=== PATIENT | female | born 1990 | race African-American/Black ===

== ENCOUNTER 2020-04-02 21:26 | Outpatient (CLI) | payer OTHER ==
[2020-04-02 21:46] VITALS: BP 122/70
[2020-04-02] MEDS ORDERED: LACTATED RINGERS 1,000 ML IV SCH (22:00)
--- NOTE | 2020-04-03 02:17 | Ultrasound Report ---
US OB limited INDICATION: RULE OUT ROM. TECHNIQUE: Transabdominal. COMPARISON: None available. FINDINGS: There is a single intrauterine . Heart Rate: 135 beats per minute. Position: cephalic. Amniotic Fluid Volume: normal Amniotic Fluid Index (NAI) in cm (if calculated): 8.8. IMPRESSION: 1. Amniotic fluid is normal. Signer Name: Fausto Munoz MD Signed: 04/03/2020 2:12 AM Workstation Name: [id number]
== END 2020-04-03 00:52 | disposition home or self-care (01) ==
LOC: TRG 21:26 → APU 21:34 → TRG 04-03 00:52
PROVIDERS: ATTEND Obstetrics & Gynecology
DX: O42.92 Full-term premature rupture of membranes, unspecified as to length of time between rupture and onset of labor (principal); Z3A.39 39 weeks gestation of pregnancy
CPT/HCPCS: 76815

== ENCOUNTER 2020-04-09 12:21 | Outpatient (CLI) | payer OTHER ==
[2020-04-09 12:57] VITALS: BP 114/75
--- NOTE | 2020-04-09 15:49 | Ultrasound Report ---
ULTRASOUND OBSTETRIC LIMITED ULTRASOUND BIOPHYSICAL PROFILE INDICATION / CLINICAL INFORMATION: nr nst in office. Clinical Gestational Age (GA): 40.3 weeks.days COMPARISON: Obstetric ultrasound dated 04/02/2020. FINDINGS: BREATHING MOVEMENT = 2 GROSS BODY MOVEMENT = 2 TONE = 2 QUALITATIVE AMNIOTIC FLUID VOLUME = 2 TOTAL BIOPHYSICAL SCORE = 8/8 HEART RATE (beats per minute): 141 AMNIOTIC FLUID INDEX (cm) = 12.3 (normal = 7-24 cm) PRESENTATION: Cephalic. ADDITIONAL FINDINGS: None. IMPRESSION: 1. Biophysical Score = 8/8 2. Single living intrauterine gestation in cephalic position. Signer Name: Doug Patrick MD Signed: 04/09/2020 3:45 PM Workstation Name: [id number]
== END 2020-04-09 15:35 | disposition home or self-care (01) ==
LOC: TRG 12:21 → APU 12:22 → TRG 15:35
PROVIDERS: ATTEND Obstetrics & Gynecology
DX: Z34.03 Encounter for supervision of normal first pregnancy, third trimester (principal); Z3A.40 40 weeks gestation of pregnancy
CPT/HCPCS: 59025; 76815; 76819

== ENCOUNTER 2020-04-12 02:18 | Inpatient (IN) | payer OTHER ==
[2020-04-12] MEDS ORDERED: ONDANSETRON 4 MG/2 ML INJ IV PRN (04:24)
[2020-04-12] MEDS ORDERED: TERBUTALINE 1 MG/1 ML INJ SUB-Q PRN (04:24)
[2020-04-12] MEDS ORDERED: MINERAL OIL 30 ML ORAL LIQD PO PRN (04:24)
[2020-04-12] MEDS ORDERED: ePHEDrine SULFATE 50 MG/1 ML INJ IV PRN ×2 (04:24→13:54)
[2020-04-12] MEDS ORDERED: AMPICILLIN/NS 2 GM/100 ML 2 GM/100 ML BAG IV ONE (04:24)
[2020-04-12] MEDS ORDERED: LIDOCAINE (2%) 20 MG/1 ML VIAL 20 ML MDV INFILTRATI ONE (04:24)
[2020-04-12] MEDS ORDERED: OXYTOCIN DRIP 30 UNITS/500 ML BAG IV SCH ×2 (05:00)
[2020-04-12 05:21] LABS: Hemoglobin 12.6 gm/dl (10.1-14.3); Mean Corpuscular HGB Conc 32 % (30-34); Mean Corpuscular Volume 86 fl (79-97); Platelet Count 300 K/mm3 (140-440); Red Blood Count 4.51 M/mm3 (3.65-5.03); Red Cell Distribution Width 15.2 % (13.2-15.2)
[2020-04-12] MEDS: LACTATED RINGERS 1,000 ML IV SCH ×2 (05:23→10:36)
[2020-04-12] MEDS: BUTORPHANOL 2 MG/1 ML INJ IV PRN ×3 (07:01→12:24)
[2020-04-12] MEDS: AMPICILLIN/NS 1 GM/50 ML 1 GM/50 ML BAG IV SCH ×3 (09:27→17:22)
[2020-04-12 09:52] LABS: Bacteria,Urine 1+ /HPF (Negative); Bilirubin,Urine NEG (Negative); Blood,Urine MOD (Negative); Color,Urine Amber (Yellow); Mucus,Urine 2+ /HPF
--- NOTE | 2020-04-12 10:53 | History and Physical Report ---
History of Present Illness Date of examination: 04/12/20 Date of admission: 04/12/20 04:24 Chief complaint: " I'm having contractions" History of present illness: 29 y/o [place] female presented to [facility] ob triage @ 40.6 wks with c/o uc times several days. She admitted to active FM and denied LOF or VB. Pt initiated her pnc at 8 5/7 wks at [facility] obstetrics gynecology md [place] location and had an uneventful preg. Med/surg/social/family hx is unremarkable. Pt was found to be in labor and was admitted to L&D for delivery. Labs: B pos AB screen neg Rubella -I RPR- NR HIV-neg HgsAg- Neg Hg Elec- AA UC- neg 1hr GTT-104 Hg -10.8 Pap- wnl GBS- pos Past History Past Medical History: no pertinent history Past Surgical History: no surgical history Family/Genetic History: none Social history: no significant social history, - Obstetrical History Expected Date of Delivery: 04/06/20 Actual Gestation: 40 Week(s) 6 Day(s) : 1 Para: 0 Medications and Allergies Allergies Allergy/AdvReac Type Severity Reaction Status Date / Time No Known Allergies Allergy Verified 04/02/20 22:04 Home Medications Medication Instructions Recorded Confirmed Last Taken Type [facility] Vitamins Tablet 140 mg PO DAILY 04/02/20 04/12/20 04/11/20 History Active Meds: Active Medications Butorphanol Tartrate (Butorphanol 2 Mg/1 Ml Inj) 2 mg IV Q2H PRN PRN Reason: Pain , Severe (7-10) Last Admin: 04/12/20 09:27 Dose: 2 mg Documented by: Ephedrine Sulfate (Ephedrine Sulfate 50 Mg/1 Ml Inj) 10 mg IV Q2M PRN PRN Reason: Hypotension Oxytocin/Sodium Chloride (Pitocin/Ns 30 Unit/500ml) 30 units in 500 mls @ 1 mls/hr IV TITR KESHIA; Protocol Last Titration: 04/12/20 09:34 Dose: 4 mls/hr Documented by: Lactated Ringer's (Lactated Ringers) 1,000 mls @ 125 mls/hr IV DIRECT KESHIA Last Admin: 04/12/20 10:36 Dose: 999 mls/hr Documented by: Oxytocin/Sodium Chloride (Pitocin/Ns 30 Unit/500ml) 30 units in 500 mls @ 40 mls/hr IV TITR KESHIA; Protocol Ampicillin Sodium (Ampicillin/Ns 1 Gm/50 Ml) 1 gm in 50 mls @ 100 mls/hr IV Q4H KESHIA; Protocol Last Admin: 04/12/20 09:27 Dose: 100 mls/hr Documented by: Mineral Oil (Mineral Oil 30 Ml Oral Liqd) 30 ml PO QHS PRN PRN Reason: Constipation Ondansetron HCl (Ondansetron 4 Mg/2 Ml Inj) 4 mg IV Q8H PRN PRN Reason: Nausea And Vomiting Terbutaline Sulfate (Terbutaline 1 Mg/1 Ml Inj) 0.25 mg SUB-Q ONCE PRN PRN Reason: Hyperstimulation/Hypertonicity Review of Systems All systems: negative Eyes: deferred Ears, nose, mouth and throat: deferred Breasts: normal Genitourinary: normal appearance - Vital Signs Vital signs: Vital Signs Temp Pulse Resp BP Pulse Ox 97.7 F 105 H 19 122/73 98 04/12/20 02:56 04/12/20 02:56 04/12/20 02:56 04/12/20 02:56 04/12/20 02:56 Temp Pulse Resp BP Pulse Ox 98.6 F 101 H 14 120/66 99 04/12/20 09:32 04/12/20 10:32 04/12/20 09:32 04/12/20 10:18 04/12/20 10:32 - Physical Exam Breasts: Positive: normal Abdomen: Positive: normal appearance, soft, normal bowel sounds, other (gravid) Genitourinary (Female): Positive: normal external genitalia, normal perenium Vulva: both: normal Vagina: Positive: normal moisture Uterus: Positive: enlarged, normal contour, other (gravid) Adnexa: both: normal Anus/Rectum: Positive: normal perianal skin Extremities: Positive: normal - Obstetrical FHR: auscultation normal, category 1 Uterine Contraction Monitor Mode: External Cervical Dilatation: 1 (per nurse) Cervical Effacement Percentage: 70 (per nurse) station: -3 Uterine Contraction Pattern: Irregular Uterine Tone Measurement Phase: Resting Uterine Contraction Intensity: Mild Results Result Diagrams: 04/12/20 04:24 Abnormal lab results 04/12/20 04/12/20 Range/Units 04:24 09:17 WBC 15.3 H (4.5-11.0) K/mm3 Ur Specific [place] 1.034 H (1.003-1.030) Urine WBC (Auto) 12.0 H (0.0-6.0) /HPF All other labs normal. Assessment and Plan A: IUP@ 40.6 wks GBS pos P: Continue monitoring with low dose Pitocin GBS prophylaxis Pain med/Epidural prn Anticipate progress - Patient Problems (1) Term Current Visit: Yes Status: Acute (2) Positive GBS test Current Visit: Yes Status: Acute
--- NOTE | 2020-04-12 11:15 | Event Note ---
Date: 04/12/20 Nurse reports pt's hr of 115-130s since admission. Upon asses of pt her HR was 118 with an O2 sat of 100%. Pt's wbc is 15.3. Pt denied sob. She denied burning, pain, or urgency upon urination. Pt stated she was in pain. Pain med, UA c&s, and a 500 cc fluid bolus was ordered. Will reassess latter. Dr Nunez consulted and agreed with plan.
--- NOTE | 2020-04-12 11:17 | Event Note ---
Date: 04/12/20 After pain med and IVF bolus was given, pt went to sleep and her HR was 103.
[2020-04-12] MEDS ORDERED: NALOXONE 2 MG/2 ML INJ IV PRN (13:54)
--- NOTE | 2020-04-12 13:54 | Anesthesia Consultation ---
Anesthesia Consult and Med Hx Date of service: 04/12/20 - Airway Anesthetic Teeth Evaluation: Good ROM Head & Neck: Adequate Mental/Hyoid Distance: Adequate Mallampati Class: Class II Intubation Access Assessment: Probably Good - Pulmonary Exam CTA: Yes - Cardiac Exam Cardiac Exam: RRR - Pre-Operative Health Status ASA Pre-Surgery Classification: ASA2 Proposed Anesthetic Plan: Epidural - Pulmonary Hx Asthma: No COPD: No Hx Pneumonia: No - Cardiovascular System Hx Hypertension: No - Central Nervous System Hx Seizures: No Hx Psychiatric Problems: No - Endocrine Hx Renal Disease: No Hx End Stage Renal Disease: No Hx Hypothyroidism: No Hx Hyperthyroidism: No - Hematic Hx Anemia: No Hx Sickle Cell Disease: No - Other Systems Hx Alcohol Use: No
[2020-04-12] MEDS ORDERED: fentaNYL-BUPIV 2 MCG/ML-0.125% 200 MCG/100 ML BAG EPIDURAL SCH (14:00)
--- NOTE | 2020-04-12 15:35 | Progress Note ---
Labor Epidural - Labor Epidural Start Time: 15:19 Stop Time: 15:33 Performed by:: NAYELI BUCKLEY Procedure: Patient is requesting epidural for labor pain. H&P, and labs reviewed. Procedure explained, questions answered, consent obtained. Patient in sitting position with blood pressure cuff and pulse ox on and working. Timeout performed immediately before start of procedure. Sterile betadine prep/drape. 3 mL 1% lidocaine skin wheal at L[3]-L[4]. 18-gauge Bergey's epidural needle advanced to [id number] with saline at [7] cm. Epidural dexmedetomidine [30] mcg administered. Epidural catheter advanced to [12] cm, negative aspiration for blood and csf, negative test dose 3 ml 1.5% lidocaine with epinephrine. Sterile steri-strips and tegaderm applied, followed by tape reinforcement. Patient tolerated procedure well. Gene PURCELL
[2020-04-12] MEDS ORDERED: GENTAMICIN/NS 80 MG/100 ML 100 ML IV ONE ×2 (20:50→20:56)
--- NOTE | 2020-04-12 21:01 | Progress Note ---
Assessment and Plan A: IUP@ term Maternal tachycardia GBS pos UTI P: Continue monitoring Continue Ampicillin q 4hr and start Gent 80mg q 8hr Anticipate Dr Nunez was consulted and agrees with plan - Patient Problems (1) Term Current Visit: Yes Status: Acute (2) Positive GBS test Current Visit: Yes Status: Acute Subjective - Subjective Date of service: 04/12/20 Principal diagnosis: TERM PREG Interval history: 29 y/o Bengali female presented to [facility] ob triage @ 40.6 wks with c/o uc times several days. She admitted to active FM and denied LOF or VB. Pt initiated her pnc at 8 5/7 wks at [facility] [place] location and had an uneventful preg. Med/surg/social/family hx is unremarkable. Pt was found to be in labor and was admitted to L&D for delivery. Labs: B pos AB screen neg Rubella -I RPR- NR HIV-neg HgsAg- Neg Hg Elec- AA UC- neg 1hr GTT-104 Hg -10.8 Pap- wnl GBS- pos Patient reports: movement normal Objective - Vital Signs Vital Signs: Vital Signs - 12hr 04/12/20 04/12/20 04/12/20 08:59 09:04 09:09 Temperature Pulse Rate 112 H 112 H 112 H Respiratory Rate Blood Pressure Blood Pressure [Right] O2 Sat by Pulse 100 99 100 Oximetry 04/12/20 04/12/20 04/12/20 09:14 09:19 09:31 Temperature Pulse Rate 107 H 109 H 116 H Respiratory Rate Blood Pressure 122/74 110/64 Blood Pressure [Right] O2 Sat by Pulse 99 100 Oximetry 04/12/20 04/12/20 04/12/20 09:32 09:37 09:42 Temperature 98.6 F Pulse Rate 116 H 106 H 103 H Respiratory 14 Rate Blood Pressure Blood Pressure 110/64 [Right] O2 Sat by Pulse 100 100 100 Oximetry 04/12/20 04/12/20 04/12/20 09:47 09:48 09:52 Temperature Pulse Rate 106 H 99 H 108 H Respiratory Rate Blood Pressure 110/61 Blood Pressure [Right] O2 Sat by Pulse 100 100 Oximetry 04/12/20 04/12/20 04/12/20 09:57 10:02 10:07 Temperature Pulse Rate 107 H 101 H 102 H Respiratory Rate Blood Pressure Blood Pressure [Right] O2 Sat by Pulse 100 99 99 Oximetry 04/12/20 04/12/20 04/12/20 10:12 10:17 10:18 Temperature Pulse Rate 102 H 102 H 99 H Respiratory Rate Blood Pressure 120/66 Blood Pressure [Right] O2 Sat by Pulse 99 99 Oximetry 04/12/20 04/12/20 04/12/20 10:22 10:27 10:32 Temperature Pulse Rate 106 H 100 H 101 H Respiratory Rate Blood Pressure Blood Pressure [Right] O2 Sat by Pulse 99 99 99 Oximetry 04/12/20 04/12/20 04/12/20 10:37 10:42 10:47 Temperature Pulse Rate 104 H 104 H 102 H Respiratory Rate Blood Pressure Blood Pressure [Right] O2 Sat by Pulse 100 100 100 Oximetry 04/12/20 04/12/20 04/12/20 10:49 10:52 10:57 Temperature Pulse Rate 101 H 99 H 104 H Respiratory Rate Blood Pressure 122/71 Blood Pressure [Right] O2 Sat by Pulse 100 100 Oximetry 04/12/20 04/12/20 04/12/20 11:02 11:07 11:12 Temperature Pulse Rate 101 H 102 H 104 H Respiratory Rate Blood Pressure Blood Pressure [Right] O2 Sat by Pulse 100 100 100 Oximetry 04/12/20 04/12/20 04/12/20 11:17 11:20 11:22 Temperature Pulse Rate 104 H 113 H 106 H Respiratory Rate Blood Pressure 129/63 Blood Pressure [Right] O2 Sat by Pulse 100 100 Oximetry 04/12/20 04/12/20 04/12/20 11:27 11:31 11:37 Temperature Pulse Rate 103 H 104 H 104 H Respiratory Rate Blood Pressure Blood Pressure [Right] O2 Sat by Pulse 99 100 100 Oximetry 04/12/20 04/12/20 04/12/20 11:42 11:47 11:52 Temperature Pulse Rate 101 H 102 H 110 H Respiratory Rate Blood Pressure 122/72 Blood Pressure [Right] O2 Sat by Pulse 100 100 100 Oximetry 04/12/20 04/12/20 04/12/20 11:56 12:02 12:07 Temperature Pulse Rate 108 H 100 H 113 H Respiratory Rate Blood Pressure Blood Pressure [Right] O2 Sat by Pulse 100 100 100 Oximetry 04/12/20 04/12/20 04/12/20 12:11 12:20 12:26 Temperature 98.4 F Pulse Rate 106 H 110 H 112 H Respiratory 14 Rate Blood Pressure 123/71 118/63 Blood Pressure 123/71 [Right] O2 Sat by Pulse 100 98 99 Oximetry 04/12/20 04/12/20 04/12/20 12:30 12:35 12:40 Temperature Pulse Rate 107 H 103 H 106 H Respiratory Rate Blood Pressure Blood Pressure [Right] O2 Sat by Pulse 99 99 99 Oximetry 04/12/20 04/12/20 04/12/20 12:45 12:48 12:50 Temperature Pulse Rate 102 H 103 H 106 H Respiratory Rate Blood Pressure 121/64 Blood Pressure [Right] O2 Sat by Pulse 99 99 Oximetry 04/12/20 04/12/20 04/12/20 12:55 13:00 13:05 Temperature Pulse Rate 108 H 107 H 110 H Respiratory Rate Blood Pressure Blood Pressure [Right] O2 Sat by Pulse 99 99 99 Oximetry 04/12/20 04/12/20 04/12/20 13:10 13:13 13:15 Temperature Pulse Rate 111 H 117 H 114 H Respiratory Rate Blood Pressure Blood Pressure [Right] O2 Sat by Pulse 95 94 94 Oximetry 04/12/20 04/12/20 04/12/20 13:18 13:20 13:25 Temperature Pulse Rate 112 H 113 H 116 H Respiratory Rate Blood Pressure 119/67 Blood Pressure [Right] O2 Sat by Pulse 94 95 94 Oximetry 04/12/20 04/12/20 04/12/20 13:30 13:35 13:40 Temperature Pulse Rate 110 H 107 H 109 H Respiratory Rate Blood Pressure Blood Pressure [Right] O2 Sat by Pulse 100 100 100 Oximetry 04/12/20 04/12/20 04/12/20 13:45 13:48 13:50 Temperature Pulse Rate 117 H 101 H 106 H Respiratory Rate Blood Pressure 130/74 Blood Pressure [Right] O2 Sat by Pulse 100 100 Oximetry 04/12/20 04/12/20 04/12/20 13:52 13:55 13:56 Temperature Pulse Rate 111 H 100 H Respiratory Rate Blood Pressure 136/82 136/80 Blood Pressure [Right] O2 Sat by Pulse 100 Oximetry 04/12/20 04/12/20 04/12/20 13:58 14:01 14:04 Temperature Pulse Rate 109 H 109 H 108 H Respiratory Rate Blood Pressure 131/74 136/88 131/80 Blood Pressure [Right] O2 Sat by Pulse 100 Oximetry 04/12/20 04/12/20 04/12/20 14:06 14:07 14:10 Temperature Pulse Rate 111 H 111 H 111 H Respiratory Rate Blood Pressure 130/76 133/79 Blood Pressure [Right] O2 Sat by Pulse 100 Oximetry 04/12/20 04/12/20 04/12/20 14:11 14:13 14:16 Temperature Pulse Rate 109 H 114 H 117 H Respiratory Rate Blood Pressure 142/80 133/76 Blood Pressure [Right] O2 Sat by Pulse 99 99 Oximetry 04/12/20 04/12/20 04/12/20 14:19 14:21 14:22 Temperature Pulse Rate 120 H 112 H 112 H Respiratory Rate Blood Pressure 133/80 135/82 Blood Pressure [Right] O2 Sat by Pulse 96 Oximetry 04/12/20 04/12/20 04/12/20 14:25 14:26 14:28 Temperature Pulse Rate 114 H 110 H 118 H Respiratory Rate Blood Pressure 141/81 136/75 Blood Pressure [Right] O2 Sat by Pulse 96 Oximetry 04/12/20 04/12/20 04/12/20 14:31 14:34 14:36 Temperature Pulse Rate 113 H 112 H 127 H Respiratory Rate Blood Pressure 135/78 137/76 Blood Pressure [Right] O2 Sat by Pulse 97 96 Oximetry 04/12/20 04/12/20 04/12/20 14:37 14:40 14:41 Temperature Pulse Rate 120 H 122 H 119 H Respiratory Rate Blood Pressure 131/78 136/76 Blood Pressure [Right] O2 Sat by Pulse 96 Oximetry 04/12/20 04/12/20 04/12/20 14:43 14:46 14:49 Temperature Pulse Rate 118 H 118 H 122 H Respiratory Rate Blood Pressure 137/74 143/74 136/70 Blood Pressure [Right] O2 Sat by Pulse 97 Oximetry 04/12/20 04/12/20 04/12/20 14:51 14:52 14:55 Temperature Pulse Rate 114 H 114 H 116 H Respiratory Rate Blood Pressure 127/73 137/73 Blood Pressure [Right] O2 Sat by Pulse 97 Oximetry 04/12/20 04/12/20 04/12/20 14:56 14:58 15:01 Temperature Pulse Rate 122 H 116 H 119 H Respiratory Rate Blood Pressure 132/72 134/70 Blood Pressure [Right] O2 Sat by Pulse 96 95 Oximetry 04/12/20 04/12/20 04/12/20 15:06 15:11 15:12 Temperature 97.3 F L Pulse Rate 118 H 127 H 121 H Respiratory 18 Rate Blood Pressure Blood Pressure 137/69 [Right] O2 Sat by Pulse 95 98 96 Oximetry 04/12/20 04/12/20 04/12/20 15:13 15:17 15:25 Temperature Pulse Rate 117 H 99 H 121 H Respiratory Rate Blood Pressure 137/69 141/64 Blood Pressure [Right] O2 Sat by Pulse 96 Oximetry 04/12/20 04/12/20 04/12/20 15:26 15:27 15:29 Temperature Pulse Rate 119 H 120 H 117 H Respiratory Rate Blood Pressure 127/60 129/62 Blood Pressure [Right] O2 Sat by Pulse 98 Oximetry 04/12/20 04/12/20 04/12/20 15:31 15:33 15:35 Temperature Pulse Rate 125 H 121 H 114 H Respiratory Rate Blood Pressure 126/69 150/65 127/58 Blood Pressure [Right] O2 Sat by Pulse 98 Oximetry 04/12/20 04/12/20 04/12/20 15:36 15:37 15:39 Temperature Pulse Rate 125 H 117 H 114 H Respiratory Rate Blood Pressure 105/65 112/59 Blood Pressure [Right] O2 Sat by Pulse 97 Oximetry 04/12/20 04/12/20 04/12/20 15:41 15:43 15:45 Temperature Pulse Rate 128 H 115 H 110 H Respiratory Rate Blood Pressure 115/57 96/55 97/50 Blood Pressure [Right] O2 Sat by Pulse 97 Oximetry 04/12/20 04/12/20 04/12/20 15:46 15:47 15:49 Temperature Pulse Rate 114 H 114 H 100 H Respiratory Rate Blood Pressure 85/47 93/54 Blood Pressure [Right] O2 Sat by Pulse 100 Oximetry 04/12/20 04/12/20 04/12/20 15:51 15:56 15:58 Temperature Pulse Rate 94 H 99 H 95 H Respiratory Rate Blood Pressure 99/57 95/54 Blood Pressure [Right] O2 Sat by Pulse 100 100 Oximetry 04/12/20 04/12/20 04/12/20 16:01 16:03 16:04 Temperature Pulse Rate 96 H 111 H 112 H Respiratory Rate Blood Pressure 99/53 96/54 Blood Pressure [Right] O2 Sat by Pulse 100 Oximetry 04/12/20 04/12/20 04/12/20 16:06 16:07 16:11 Temperature Pulse Rate 105 H 93 H 104 H Respiratory Rate Blood Pressure 104/59 Blood Pressure [Right] O2 Sat by Pulse 100 100 Oximetry 04/12/20 04/12/20 04/12/20 16:16 16:21 16:25 Temperature Pulse Rate 109 H 110 H 115 H Respiratory Rate Blood Pressure 113/62 Blood Pressure [Right] O2 Sat by Pulse 98 97 Oximetry 04/12/20 04/12/20 04/12/20 16:26 16:31 16:36 Temperature Pulse Rate 111 H 101 H 115 H Respiratory Rate Blood Pressure Blood Pressure [Right] O2 Sat by Pulse 97 100 100 Oximetry 04/12/20 04/12/20 04/12/20 16:40 16:41 16:46 Temperature Pulse Rate 104 H 102 H 100 H Respiratory Rate Blood Pressure 98/50 Blood Pressure [Right] O2 Sat by Pulse 99 98 Oximetry 04/12/20 04/12/20 04/12/20 16:51 16:56 17:00 Temperature 97.7 F Pulse Rate 109 H 111 H Respiratory 16 Rate Blood Pressure 103/51 Blood Pressure [Right] O2 Sat by Pulse 99 100 Oximetry 04/12/20 04/12/20 04/12/20 17:01 17:06 17:11 Temperature Pulse Rate 109 H 107 H 103 H Respiratory Rate Blood Pressure 105/56 Blood Pressure [Right] O2 Sat by Pulse 99 99 99 Oximetry 04/12/20 04/12/20 04/12/20 17:16 17:21 17:25 Temperature Pulse Rate 122 H 112 H 99 H Respiratory Rate Blood Pressure 111/57 Blood Pressure [Right] O2 Sat by Pulse 98 97 Oximetry 04/12/20 04/12/20 04/12/20 17:26 17:31 17:36 Temperature Pulse Rate 105 H 105 H 122 H Respiratory Rate Blood Pressure Blood Pressure [Right] O2 Sat by Pulse 100 100 98 Oximetry 04/12/20 04/12/20 04/12/20 17:41 17:46 17:51 Temperature Pulse Rate 113 H 119 H 93 H Respiratory Rate Blood Pressure 118/70 Blood Pressure [Right] O2 Sat by Pulse 100 100 100 Oximetry 04/12/20 04/12/20 04/12/20 17:56 18:01 18:06 Temperature Pulse Rate 103 H 107 H 103 H Respiratory Rate Blood Pressure 107/58 Blood Pressure [Right] O2 Sat by Pulse 100 100 100 Oximetry 04/12/20 04/12/20 04/12/20 18:11 18:16 18:21 Temperature Pulse Rate 107 H 112 H 102 H Respiratory Rate Blood Pressure 119/66 Blood Pressure [Right] O2 Sat by Pulse 100 100 100 Oximetry 04/12/20 04/12/20 04/12/20 18:26 18:27 18:29 Temperature Pulse Rate 113 H 106 H 95 H Respiratory Rate Blood Pressure 109/58 113/56 Blood Pressure [Right] O2 Sat by Pulse 99 Oximetry 04/12/20 04/12/20 04/12/20 18:30 18:31 18:36 Temperature 98.5 F Pulse Rate 98 H 101 H 112 H Respiratory 14 Rate Blood Pressure Blood Pressure 113/56 [Right] O2 Sat by Pulse 100 100 98 Oximetry 04/12/20 04/12/20 04/12/20 18:41 18:42 18:46 Temperature Pulse Rate 103 H 101 H 105 H Respiratory Rate Blood Pressure 107/58 Blood Pressure [Right] O2 Sat by Pulse 100 97 Oximetry 04/12/20 04/12/20 04/12/20 18:51 18:56 19:01 Temperature Pulse Rate 110 H 110 H 117 H Respiratory Rate Blood Pressure 116/61 Blood Pressure [Right] O2 Sat by Pulse 97 98 96 Oximetry 04/12/20 04/12/20 04/12/20 19:05 19:06 19:11 Temperature Pulse Rate 117 H 128 H 119 H Respiratory Rate Blood Pressure 117/66 Blood Pressure [Right] O2 Sat by Pulse 94 96 98 Oximetry 04/12/20 04/12/20 04/12/20 19:16 19:20 19:21 Temperature 98.8 F Pulse Rate 119 H 117 H 120 H Respiratory 20 Rate Blood Pressure 124/66 Blood Pressure 124/66 [Right] O2 Sat by Pulse 97 97 97 Oximetry 04/12/20 04/12/20 04/12/20 19:26 19:31 19:36 Temperature Pulse Rate 124 H 122 H 121 H Respiratory Rate Blood Pressure 127/66 Blood Pressure [Right] O2 Sat by Pulse 96 97 98 Oximetry 04/12/20 04/12/20 04/12/20 19:41 19:46 19:51 Temperature Pulse Rate 114 H 125 H 125 H Respiratory Rate Blood Pressure 109/70 Blood Pressure [Right] O2 Sat by Pulse 97 96 97 Oximetry 04/12/20 04/12/20 04/12/20 19:56 20:01 20:06 Temperature Pulse Rate 126 H 122 H 137 H Respiratory Rate Blood Pressure 125/58 Blood Pressure [Right] O2 Sat by Pulse 97 98 98 Oximetry 04/12/20 04/12/20 04/12/20 20:11 20:12 20:16 Temperature Pulse Rate 142 H 142 H 145 H Respiratory Rate Blood Pressure 130/72 Blood Pressure [Right] O2 Sat by Pulse 96 96 Oximetry 04/12/20 04/12/20 04/12/20 20:21 20:26 20:31 Temperature Pulse Rate 142 H 152 H 138 H Respiratory Rate Blood Pressure 127/71 Blood Pressure [Right] O2 Sat by Pulse 97 97 98 Oximetry 04/12/20 04/12/20 04/12/20 20:36 20:41 20:43 Temperature Pulse Rate 137 H 133 H 141 H Respiratory Rate Blood Pressure 121/94 149/62 Blood Pressure [Right] O2 Sat by Pulse 99 99 Oximetry 04/12/20 04/12/20 20:46 20:51 Temperature Pulse Rate 137 H 138 H Respiratory Rate Blood Pressure Blood Pressure [Right] O2 Sat by Pulse 99 98 Oximetry - Exam Breasts: deferred Abdomen: Present: normal appearance, soft, other (GRAVID) Vulva: both: normal Uterus: Present: normal FHR: category 1 Uterine Contraction Monitor Mode: External Cervical Dilatation: 10 Cervical Effacement Percentage: 100 station: -1 Uterine Contraction Frequency (min): Q2-3 Uterine Contraction Pattern: Regular Uterine Tone Measurement Phase: Resting Uterine Contraction Intensity: Strong/Firm Extremities: normal - Labs Labs: Abnormal Labs 04/12/20 04/12/20 04:24 09:17 WBC 15.3 H Ur Specific [place] 1.034 H Urine WBC (Auto) 12.0 H Laboratory Results - last 24 hr 04/12/20 04/12/20 04/12/20 04:24 04:24 04:40 WBC 15.3 H RBC 4.51 Hgb 12.6 Hct 39.0 MCV 86 MCH 28 MCHC 32 RDW 15.2 Plt Count 300 Urine Color Urine Turbidity Urine pH Ur Specific [place] Urine Protein Urine Glucose (UA) Urine Ketones Urine Blood Urine Nitrite Urine Bilirubin Urine Urobilinogen Ur Leukocyte Esterase Urine WBC (Auto) Urine RBC (Auto) U Epithel Cells (Auto) Urine Bacteria (Auto) Urine Mucus Syphilis IgG Antibody Nonreactive Coronavirus (PCR) Blood Type B POSITIVE Antibody Screen Negative 04/12/20 04/12/20 09:17 09:18 WBC RBC Hgb Hct MCV MCH MCHC RDW Plt Count Urine Color Julia Urine Turbidity Cloudy Urine pH 5.0 Ur Specific [place] 1.034 H Urine Protein 100 mg/dl Urine Glucose (UA) Neg Urine Ketones Tr Urine Blood Mod Urine Nitrite Neg Urine Bilirubin Neg Urine Urobilinogen 2.0 Ur Leukocyte Esterase Tr Urine WBC (Auto) 12.0 H Urine RBC (Auto) 1.0 U Epithel Cells (Auto) 8.0 Urine Bacteria (Auto) 1+ Urine Mucus 2+ Syphilis IgG Antibody Coronavirus (PCR) Negative Blood Type Antibody Screen
[2020-04-13] MEDS: ACETAMINOPHEN 325 MG TAB PO PRN (02:00)
--- NOTE | 2020-04-13 02:19 | Event Note ---
Date: 04/13/20 SVE 10/100%/0 which is unchanged from last exam. FHT 146 with mod isreal + accels occ variables. UC q2-3 with MVUs of 192. Maternal Temp. 99.5, HR 84, B/p 139/91. Pt has been fully dilated since 8:30 pm and has been intermittently pushing x 3.5 hrs. At this point the pt is too exhausted to continue and is requesting a c/s. Dr Nunez was notified of pt's status, and was asked to come for a bedside assessment of pt's condition.
[2020-04-13] MEDS ORDERED: METOCLOPRAMIDE 10 MG/2 ML INJ ONE (02:37)
[2020-04-13] MEDS ORDERED: BICITRA ORAL LIQD 30ML PO ONE (02:37)
[2020-04-13] MEDS ORDERED: BICITRA ORAL LIQD 30ML ONE (02:37)
[2020-04-13] MEDS ORDERED: FAMOTIDINE 20 MG/2 ML INJ IV ONE ×2 (02:37→02:42)
[2020-04-13] MEDS ORDERED: ceFAZolin/Water 2 GM/20 ML 2 GM/20 ML SYRINGE IV ONE (02:38)
[2020-04-13] MEDS ORDERED: METOCLOPRAMIDE 10 MG/2 ML INJ IV ONE (02:42)
--- NOTE | 2020-04-13 02:44 | Progress Note ---
Subjective - Subjective Date of service: 04/13/20 Principal diagnosis: TERM PREG Interval history: arrest of second stage, chorioamnionitis NPO, to OR for cesaran section Amirah Nunez MD Patient reports: movement normal Objective - Vital Signs Vital Signs: Vital Signs - 12hr 04/12/20 04/12/20 04/12/20 14:46 14:49 14:51 Temperature Pulse Rate 118 H 122 H 114 H Respiratory Rate Blood Pressure 143/74 136/70 Blood Pressure [Right] O2 Sat by Pulse 97 97 Oximetry 04/12/20 04/12/20 04/12/20 14:52 14:55 14:56 Temperature Pulse Rate 114 H 116 H 122 H Respiratory Rate Blood Pressure 127/73 137/73 Blood Pressure [Right] O2 Sat by Pulse 96 Oximetry 04/12/20 04/12/20 04/12/20 14:58 15:01 15:06 Temperature Pulse Rate 116 H 119 H 118 H Respiratory Rate Blood Pressure 132/72 134/70 Blood Pressure [Right] O2 Sat by Pulse 95 95 Oximetry 04/12/20 04/12/20 04/12/20 15:11 15:12 15:13 Temperature 97.3 F L Pulse Rate 127 H 121 H 117 H Respiratory 18 Rate Blood Pressure 137/69 Blood Pressure 137/69 [Right] O2 Sat by Pulse 98 96 Oximetry 04/12/20 04/12/20 04/12/20 15:17 15:25 15:26 Temperature Pulse Rate 99 H 121 H 119 H Respiratory Rate Blood Pressure 141/64 Blood Pressure [Right] O2 Sat by Pulse 96 98 Oximetry 04/12/20 04/12/20 04/12/20 15:27 15:29 15:31 Temperature Pulse Rate 120 H 117 H 125 H Respiratory Rate Blood Pressure 127/60 129/62 126/69 Blood Pressure [Right] O2 Sat by Pulse 98 Oximetry 04/12/20 04/12/20 04/12/20 15:33 15:35 15:36 Temperature Pulse Rate 121 H 114 H 125 H Respiratory Rate Blood Pressure 150/65 127/58 Blood Pressure [Right] O2 Sat by Pulse 97 Oximetry 04/12/20 04/12/20 04/12/20 15:37 15:39 15:41 Temperature Pulse Rate 117 H 114 H 128 H Respiratory Rate Blood Pressure 105/65 112/59 115/57 Blood Pressure [Right] O2 Sat by Pulse 97 Oximetry 04/12/20 04/12/20 04/12/20 15:43 15:45 15:46 Temperature Pulse Rate 115 H 110 H 114 H Respiratory Rate Blood Pressure 96/55 97/50 Blood Pressure [Right] O2 Sat by Pulse 100 Oximetry 04/12/20 04/12/20 04/12/20 15:47 15:49 15:51 Temperature Pulse Rate 114 H 100 H 94 H Respiratory Rate Blood Pressure 85/47 93/54 99/57 Blood Pressure [Right] O2 Sat by Pulse 100 Oximetry 04/12/20 04/12/20 04/12/20 15:56 15:58 16:01 Temperature Pulse Rate 99 H 95 H 96 H Respiratory Rate Blood Pressure 95/54 Blood Pressure [Right] O2 Sat by Pulse 100 100 Oximetry 04/12/20 04/12/20 04/12/20 16:03 16:04 16:06 Temperature Pulse Rate 111 H 112 H 105 H Respiratory Rate Blood Pressure 99/53 96/54 Blood Pressure [Right] O2 Sat by Pulse 100 Oximetry 04/12/20 04/12/20 04/12/20 16:07 16:11 16:16 Temperature Pulse Rate 93 H 104 H 109 H Respiratory Rate Blood Pressure 104/59 Blood Pressure [Right] O2 Sat by Pulse 100 98 Oximetry 04/12/20 04/12/20 04/12/20 16:21 16:25 16:26 Temperature Pulse Rate 110 H 115 H 111 H Respiratory Rate Blood Pressure 113/62 Blood Pressure [Right] O2 Sat by Pulse 97 97 Oximetry 04/12/20 04/12/20 04/12/20 16:31 16:36 16:40 Temperature Pulse Rate 101 H 115 H 104 H Respiratory Rate Blood Pressure 98/50 Blood Pressure [Right] O2 Sat by Pulse 100 100 Oximetry 04/12/20 04/12/20 04/12/20 16:41 16:46 16:51 Temperature Pulse Rate 102 H 100 H 109 H Respiratory Rate Blood Pressure Blood Pressure [Right] O2 Sat by Pulse 99 98 99 Oximetry 04/12/20 04/12/20 04/12/20 16:56 17:00 17:01 Temperature 97.7 F Pulse Rate 111 H 109 H Respiratory 16 Rate Blood Pressure 103/51 Blood Pressure [Right] O2 Sat by Pulse 100 99 Oximetry 04/12/20 04/12/20 04/12/20 17:06 17:11 17:16 Temperature Pulse Rate 107 H 103 H 122 H Respiratory Rate Blood Pressure 105/56 Blood Pressure [Right] O2 Sat by Pulse 99 99 98 Oximetry 04/12/20 04/12/20 04/12/20 17:21 17:25 17:26 Temperature Pulse Rate 112 H 99 H 105 H Respiratory Rate Blood Pressure 111/57 Blood Pressure [Right] O2 Sat by Pulse 97 100 Oximetry 04/12/20 04/12/20 04/12/20 17:31 17:36 17:41 Temperature Pulse Rate 105 H 122 H 113 H Respiratory Rate Blood Pressure 118/70 Blood Pressure [Right] O2 Sat by Pulse 100 98 100 Oximetry 04/12/20 04/12/20 04/12/20 17:46 17:51 17:56 Temperature Pulse Rate 119 H 93 H 103 H Respiratory Rate Blood Pressure 107/58 Blood Pressure [Right] O2 Sat by Pulse 100 100 100 Oximetry 04/12/20 04/12/20 04/12/20 18:01 18:06 18:11 Temperature Pulse Rate 107 H 103 H 107 H Respiratory Rate Blood Pressure 119/66 Blood Pressure [Right] O2 Sat by Pulse 100 100 100 Oximetry 04/12/20 04/12/20 04/12/20 18:16 18:21 18:26 Temperature Pulse Rate 112 H 102 H 113 H Respiratory Rate Blood Pressure Blood Pressure [Right] O2 Sat by Pulse 100 100 99 Oximetry 04/12/20 04/12/20 04/12/20 18:27 18:29 18:30 Temperature 98.5 F Pulse Rate 106 H 95 H 98 H Respiratory 14 Rate Blood Pressure 109/58 113/56 Blood Pressure 113/56 [Right] O2 Sat by Pulse 100 Oximetry 04/12/20 04/12/20 04/12/20 18:31 18:36 18:41 Temperature Pulse Rate 101 H 112 H 103 H Respiratory Rate Blood Pressure Blood Pressure [Right] O2 Sat by Pulse 100 98 100 Oximetry 04/12/20 04/12/20 04/12/20 18:42 18:46 18:51 Temperature Pulse Rate 101 H 105 H 110 H Respiratory Rate Blood Pressure 107/58 Blood Pressure [Right] O2 Sat by Pulse 97 97 Oximetry 04/12/20 04/12/20 04/12/20 18:56 19:01 19:05 Temperature Pulse Rate 110 H 117 H 117 H Respiratory Rate Blood Pressure 116/61 Blood Pressure [Right] O2 Sat by Pulse 98 96 94 Oximetry 04/12/20 04/12/20 04/12/20 19:06 19:11 19:16 Temperature Pulse Rate 128 H 119 H 119 H Respiratory Rate Blood Pressure 117/66 Blood Pressure [Right] O2 Sat by Pulse 96 98 97 Oximetry 04/12/20 04/12/20 04/12/20 19:20 19:21 19:26 Temperature 98.8 F Pulse Rate 117 H 120 H 124 H Respiratory 20 Rate Blood Pressure 124/66 127/66 Blood Pressure 124/66 [Right] O2 Sat by Pulse 97 97 96 Oximetry 04/12/20 04/12/20 04/12/20 19:31 19:36 19:41 Temperature Pulse Rate 122 H 121 H 114 H Respiratory Rate Blood Pressure 109/70 Blood Pressure [Right] O2 Sat by Pulse 97 98 97 Oximetry 04/12/20 04/12/20 04/12/20 19:46 19:51 19:56 Temperature Pulse Rate 125 H 125 H 126 H Respiratory Rate Blood Pressure 125/58 Blood Pressure [Right] O2 Sat by Pulse 96 97 97 Oximetry 04/12/20 04/12/20 04/12/20 20:01 20:06 20:11 Temperature Pulse Rate 122 H 137 H 142 H Respiratory Rate Blood Pressure Blood Pressure [Right] O2 Sat by Pulse 98 98 96 Oximetry 04/12/20 04/12/20 04/12/20 20:12 20:16 20:21 Temperature Pulse Rate 142 H 145 H 142 H Respiratory Rate Blood Pressure 130/72 Blood Pressure [Right] O2 Sat by Pulse 96 97 Oximetry 04/12/20 04/12/20 04/12/20 20:26 20:31 20:36 Temperature Pulse Rate 152 H 138 H 137 H Respiratory Rate Blood Pressure 127/71 Blood Pressure [Right] O2 Sat by Pulse 97 98 99 Oximetry 04/12/20 04/12/20 04/12/20 20:41 20:43 20:46 Temperature Pulse Rate 133 H 141 H 137 H Respiratory Rate Blood Pressure 121/94 149/62 Blood Pressure [Right] O2 Sat by Pulse 99 99 Oximetry 04/12/20 04/12/20 04/12/20 20:51 20:56 20:57 Temperature Pulse Rate 138 H 130 H 129 H Respiratory Rate Blood Pressure 125/65 Blood Pressure [Right] O2 Sat by Pulse 98 96 Oximetry 04/12/20 04/12/20 04/12/20 21:01 21:06 21:11 Temperature Pulse Rate 121 H 125 H 122 H Respiratory Rate Blood Pressure Blood Pressure [Right] O2 Sat by Pulse 97 98 97 Oximetry 04/12/20 04/12/20 04/12/20 21:12 21:16 21:21 Temperature Pulse Rate 123 H 128 H 127 H Respiratory Rate Blood Pressure 126/67 Blood Pressure [Right] O2 Sat by Pulse 97 100 Oximetry 04/12/20 04/12/20 04/12/20 21:26 21:31 21:36 Temperature Pulse Rate 134 H 125 H 131 H Respiratory Rate Blood Pressure Blood Pressure [Right] O2 Sat by Pulse 100 98 97 Oximetry 04/12/20 04/12/20 04/12/20 21:41 21:46 21:55 Temperature Pulse Rate 125 H 128 H 128 H Respiratory Rate Blood Pressure 115/63 126/67 Blood Pressure [Right] O2 Sat by Pulse 95 99 Oximetry 04/12/20 04/12/20 04/12/20 22:08 22:10 22:13 Temperature Pulse Rate 134 H 131 H 125 H Respiratory Rate Blood Pressure 122/76 Blood Pressure [Right] O2 Sat by Pulse 98 100 Oximetry 04/12/20 04/12/20 04/12/20 22:25 22:40 22:41 Temperature Pulse Rate 137 H 126 H 51 L Respiratory Rate Blood Pressure 113/68 127/76 Blood Pressure [Right] O2 Sat by Pulse 54 L Oximetry 04/12/20 04/12/20 04/12/20 22:55 22:59 23:04 Temperature Pulse Rate 130 H 117 H 99 H Respiratory Rate Blood Pressure 124/64 Blood Pressure [Right] O2 Sat by Pulse 98 100 Oximetry 04/12/20 04/12/20 04/12/20 23:09 23:12 23:14 Temperature Pulse Rate 102 H 148 H 100 H Respiratory Rate Blood Pressure 126/51 Blood Pressure [Right] O2 Sat by Pulse 100 97 Oximetry 04/12/20 04/12/20 04/13/20 23:25 23:56 00:01 Temperature Pulse Rate 125 H 89 104 H Respiratory Rate Blood Pressure 139/91 Blood Pressure [Right] O2 Sat by Pulse 100 97 Oximetry 04/13/20 04/13/20 04/13/20 00:04 00:24 00:49 Temperature Pulse Rate 66 117 H 115 H Respiratory Rate Blood Pressure Blood Pressure [Right] O2 Sat by Pulse 85 100 97 Oximetry 04/13/20 04/13/20 04/13/20 00:54 00:59 01:04 Temperature Pulse Rate 96 H 109 H 103 H Respiratory Rate Blood Pressure Blood Pressure [Right] O2 Sat by Pulse 97 100 97 Oximetry 04/13/20 04/13/20 04/13/20 01:09 01:14 01:19 Temperature Pulse Rate 127 H 98 H 98 H Respiratory Rate Blood Pressure Blood Pressure [Right] O2 Sat by Pulse 97 98 97 Oximetry 04/13/20 04/13/20 04/13/20 01:24 01:25 01:30 Temperature Pulse Rate 98 H 105 H 129 H Respiratory Rate Blood Pressure Blood Pressure [Right] O2 Sat by Pulse 95 94 96 Oximetry 04/13/20 04/13/20 04/13/20 01:35 02:03 02:08 Temperature Pulse Rate 83 82 118 H Respiratory Rate Blood Pressure Blood Pressure [Right] O2 Sat by Pulse 97 100 96 Oximetry 04/13/20 04/13/20 04/13/20 02:13 02:18 02:23 Temperature Pulse Rate 108 H 98 H 98 H Respiratory Rate Blood Pressure Blood Pressure [Right] O2 Sat by Pulse 98 99 99 Oximetry - Labs Labs: Abnormal Labs 04/12/20 04/12/20 04:24 09:17 WBC 15.3 H Ur Specific Wendell 1.034 H Urine WBC (Auto) 12.0 H Laboratory Results - last 24 hr 04/12/20 04/12/20 04/12/20 04:24 04:24 04:40 WBC 15.3 H RBC 4.51 Hgb 12.6 Hct 39.0 MCV 86 MCH 28 MCHC 32 RDW 15.2 Plt Count 300 Urine Color Urine Turbidity Urine pH Ur Specific Wendell Urine Protein Urine Glucose (UA) Urine Ketones Urine Blood Urine Nitrite Urine Bilirubin Urine Urobilinogen Ur Leukocyte Esterase Urine WBC (Auto) Urine RBC (Auto) U Epithel Cells (Auto) Urine Bacteria (Auto) Urine Mucus Syphilis IgG Antibody Nonreactive Coronavirus (PCR) Blood Type B POSITIVE Antibody Screen Negative 04/12/20 04/12/20 09:17 09:18 WBC RBC Hgb Hct MCV MCH MCHC RDW Plt Count Urine Color Julia Urine Turbidity Cloudy Urine pH 5.0 Ur Specific Wendell 1.034 H Urine Protein 100 mg/dl Urine Glucose (UA) Neg Urine Ketones Tr Urine Blood Mod Urine Nitrite Neg Urine Bilirubin Neg Urine Urobilinogen 2.0 Ur Leukocyte Esterase Tr Urine WBC (Auto) 12.0 H Urine RBC (Auto) 1.0 U Epithel Cells (Auto) 8.0 Urine Bacteria (Auto) 1+ Urine Mucus 2+ Syphilis IgG Antibody Coronavirus (PCR) Negative Blood Type Antibody Screen
[2020-04-13] MEDS ORDERED: LACTATED RINGERS 1,000 ML IV SCH (02:45)
--- NOTE | 2020-04-13 02:45 | Procedure Note ---
OB Delivery Note - Delivery Date of Delivery: 04/13/20 Surgeon: RUSSELL GERBER - Section Preop diagnosis: arrest of descent, other (chorioamnionitis) Postop diagnosis: same (delivered) section procedure: primary low transverse Disposition: PACU Complications: none Narrative: Preop diagnosis: IUP at 41 weeks, second stage arrest, chorioamnionitis Postop diagnosis: Same, delivered Procedure: Primary low transverse section via Pfannenstiel incision Surgeon: Dr. Fiordaliza Gerber Anesthesia spinal Complications lower uterine segment atony requiring two doses of Methergine EBL 800ml IV fluids 1000mL Urine output 200mL, clear Drains Min to gravity Findings: Viable male with weight 3621gma and 8/9, normal uterus tubes and ovaries bilaterally Procedure: Patient was consented in , taken to the operating room where excellent epidural anesthesia was verified. she was then placed in the dorsal supine position with a leftward tilt. The abdomen was prepped and draped in a sterile fashion, and a timeout was verified. Adequate anesthesia was confirmed prior to the skin incision. A Pfannenstiel skin incision was made with a scalpel taken down to the underlying structures and the fascia was incised in the midline. The incision was extended laterally with curved Montesinos scissors, the superior and inferior aspects of the fascial incisions were grasped with Baldev clamps and the rectus muscles dissected sharply. The abdomen was entered bluntly in the midline carried down inferiorly with good visualization of the bladder. The vesicouterine peritoneum was tented with Japanese forceps and incised in the midline with Metzenbaum scissors and the vesicouterine peritoneum taken down sharply. Bladder blade was inserted, the uterine incision was made sharply with a scalpel. The inferior and superior aspect of the uterine incisions were extended bluntly, the baby's head was delivered atraumatically. The remainder of the delivery was uneventful, no nuchal cord. The cord was clamped and cut and baby handed to waiting NICU team. An intact placenta with three-vessel cord delivered manually. The uterus was then cleared of all clots and debris and the uterus exteriorized. The uterine incision was closed with 2 layers of 0 chromic with excellent hemostasis. Lower segment uterine atony was noted and two doses of Methergine 0.2mg were given IM. At the completion of the procedure the atony had resolved the abdomen was then irrigated with warm normal saline and the uterus placed back into the abdomen atraumatically. A second look at the uterine incision assured hemostasis. The peritoneum was closed with 3-0 Vicryl, the rectus muscles approximated with 3-0 Vicryl, and the fascia closed with 0 Vicryl in the usual fashion. The subcuticular structures were closed with interrupted sutures of 3-0 Vicryl and the skin closed with 4-0 Monocryl. A pressure dressing was applied. All sponge needle and instrument counts were correct x2. There were no complications. Mom and baby stable to PACU. EBL 800 mL Amirah Gerber MD
[2020-04-13] MEDS ORDERED: SODIUM BICARB 8.4% 50 MEQ/50 ML VIAL IV ONE (03:02)
[2020-04-13] MEDS ORDERED: BUPIVACAINE/PF (0.5%) 5 MG/1 ML 30 ML VIAL INFILTRATI ONE (03:02)
[2020-04-13] MEDS ORDERED: LIDOCAINE 2%/EPINEPHRINE 1:200,000 VIAL (20 ML) INFILTRATI ONE (03:02)
[2020-04-13] MEDS ORDERED: METHYLERGONOVINE MALEATE 0.2 MG/ML VIAL IM ONE ×2 (03:19→03:33)
[2020-04-13] MEDS ORDERED: NALOXONE 0.4 MG/1 ML INJ IV PRN (03:20)
[2020-04-13] MEDS ORDERED: LANOLIN/ZINC/DIMETHICONE (LANSINOH) 7 GM TP PRN (03:20)
[2020-04-13] MEDS ORDERED: MAGNESIUM HYDROXIDE (MOM) ORAL LIQD UDC PO PRN (03:20)
[2020-04-13] MEDS ORDERED: MORPHINE 2 MG/1 ML INJ IV PRN (03:20)
[2020-04-13] MEDS ORDERED: WITCH HAZEL/ GLYCERIN PAD TP PRN (03:20)
[2020-04-13] MEDS ORDERED: PROMETHAZINE 25 MG RECT SUPP PR PRN (03:20)
[2020-04-13] MEDS ORDERED: ONDANSETRON 4 MG/2 ML INJ IV PRN (03:20)
[2020-04-13] MEDS ORDERED: KETOROLAC 30 MG/1 ML INJ ONE (03:58)
[2020-04-13] MEDS ORDERED: LACTATED RINGERS 1,000 ML ONE (03:58)
[2020-04-13] MEDS ORDERED: OXYTOCIN DRIP 30 UNITS/500 ML BAG IV SCH (04:00)
[2020-04-13] MEDS ORDERED: ceFAZolin/NS 1 GM/50 ML 1 GM/50 ML BAG IV SCH (10:00)
[2020-04-13] MEDS ORDERED: PRENATAL VITAMINS PO SCH (10:00)
[2020-04-13] MEDS: PRENATAL VIT27-FE FUMARATE-FOLIC ACID VIT TAB PO SCH (10:34)
[2020-04-13] MEDS: MORPHINE 4 MG/1 ML INJ IV PRN ×3 (10:35→19:10)
[2020-04-13] MEDS: LACTATED RINGERS 1,000 ML IV SCH (10:37)
--- NOTE | 2020-04-13 12:55 | Progress Note ---
Subjective Principal diagnosis: TERM PREG Interval history: pt with gross hematuria after c section wells clear today (DO NOT REMOVE WELLS) cystogram today will need to go home with wells to big bag & leg bag Objective - Constitutional Vitals: Vital Signs - 12hr 04/13/20 04/13/20 04/13/20 00:59 01:04 01:09 Temperature Pulse Rate 109 H 103 H 127 H Respiratory Rate Blood Pressure Blood Pressure [Right] O2 Sat by Pulse 100 97 97 Oximetry 04/13/20 04/13/20 04/13/20 01:14 01:19 01:24 Temperature Pulse Rate 98 H 98 H 98 H Respiratory Rate Blood Pressure Blood Pressure [Right] O2 Sat by Pulse 98 97 95 Oximetry 04/13/20 04/13/20 04/13/20 01:25 01:30 01:35 Temperature Pulse Rate 105 H 129 H 83 Respiratory Rate Blood Pressure Blood Pressure [Right] O2 Sat by Pulse 94 96 97 Oximetry 04/13/20 04/13/20 04/13/20 02:03 02:08 02:13 Temperature Pulse Rate 82 118 H 108 H Respiratory Rate Blood Pressure Blood Pressure [Right] O2 Sat by Pulse 100 96 98 Oximetry 04/13/20 04/13/20 04/13/20 02:18 02:23 04:12 Temperature 98.7 F Pulse Rate 98 H 98 H Respiratory Rate Blood Pressure Blood Pressure [Right] O2 Sat by Pulse 99 99 Oximetry 04/13/20 04/13/20 04/13/20 04:15 04:20 04:25 Temperature Pulse Rate 78 71 67 Respiratory Rate Blood Pressure 127/59 125/80 138/70 Blood Pressure [Right] O2 Sat by Pulse Oximetry 04/13/20 04/13/20 04/13/20 04:30 04:45 05:00 Temperature Pulse Rate 69 70 70 Respiratory 16 18 Rate Blood Pressure 138/79 138/79 130/78 Blood Pressure [Right] O2 Sat by Pulse 96 96 Oximetry 04/13/20 04/13/20 04/13/20 05:15 05:30 08:45 Temperature 97.6 F Pulse Rate 73 76 68 Respiratory 18 20 18 Rate Blood Pressure 136/78 129/76 Blood Pressure 127/62 [Right] O2 Sat by Pulse 96 96 96 Oximetry 04/13/20 04/13/20 10:35 12:37 Temperature 98 F Pulse Rate 72 Respiratory 18 18 Rate Blood Pressure Blood Pressure 132/76 [Right] O2 Sat by Pulse 97 Oximetry - Labs CBC & Chem 7: 04/12/20 04:24 Medications & Allergies - Medications Allergies/Adverse Reactions: Allergies No Known Allergies Allergy (Verified 04/02/20 22:04) Home Medications: Home Medications Medication Instructions Recorded Confirmed Last Taken Type [facility] Vit[facility] Tablet 140 mg PO DAILY 04/02/20 04/12/20 04/11/20 History Ibuprofen [Motrin] 600 mg PO Q8H PRN #60 tablet 04/13/20 Unknown Rx oxyCODONE /ACETAMINOPHEN [Percocet 1 tab PO Q6HR PRN #20 tablet 04/13/20 Unknown Rx 5/325] Active Medications: Generic Name Dose Route Start Last Admin Trade Name Freq PRN Reason Stop Dose Admin Acetaminophen 650 mg 04/13/20 02:01 04/13/20 02:00 Acetaminophen 325 Mg Tab PO 650 mg Q4H PRN Administration Pain, Mild (1-3) Butorphanol Tartrate 2 mg 04/12/20 04:24 04/12/20 12:24 Butorphanol 2 Mg/1 Ml Inj IV 2 mg Q2H PRN Administration Pain , Severe (7-10) Ephedrine Sulfate 10 mg 04/12/20 13:54 Ephedrine Sulfate 50 Mg/1 Ml Inj IV Q2M PRN Hypotension Lactated Ringer's 1,000 mls @ 125 mls/hr 04/12/20 04:30 04/13/20 10:37 Lactated Ringers IV 125 mls/hr DIRECT [facility] Administration Oxytocin/Sodium Chloride 30 units in 500 mls @ 40 mls/hr 04/12/20 05:00 Pitocin/Ns 30 Unit/500ml IV TITR [facility] Protocol Ampicillin Sodium 1 gm in 50 mls @ 100 mls/hr 04/12/20 09:30 04/12/20 17:22 Ampicillin/Ns 1 Gm/50 Ml IV 100 mls/hr Q4H [facility] Administration Protocol Fentanyl/Bupivacaine/Sodium Chlor 200 mcg in 100 mls @ 12 mls/hr 04/12/20 14:00 04/12/20 16:02 Fentanyl-Bupiv 2 Mcg/Ml-0.125% EPIDURAL 12 mls/hr TITR K[facility] Administration Protocol Lactated Ringer's 1,000 mls @ 2,250 mls/hr 04/13/20 02:45 Lactated Ringers IV 04/14/20 03:12 PREOP [facility] Oxytocin/Sodium Chloride 30 units in 500 mls @ 165 mls/hr 04/13/20 04:00 Pitocin/Ns 30 Unit/500ml IV TITR [facility] Gentamicin Sulfate/Sodium Chloride 100 mls @ 200 mls/hr 04/13/20 10:00 Gentamicin/Ns 80 Mg/100 Ml IV Q8H [facility] Clindamycin HCl 900 mg in 50 mls @ 100 mls/hr 04/13/20 10:00 Cleocin 900 Mg/50 Ml IV Q8H [facility] Protocol Ibuprofen 800 mg 04/13/20 03:20 Ibuprofen 800 Mg Tab PO Q6H PRN Pain, Mild (1-3) Magnesium Hydroxide 30 ml 04/13/20 03:20 Magnesium Hydroxide (Mom) Oral Liqd Udc PO QHS PRN Constip Unrelieved By Senna Mineral Oil 30 ml 04/12/20 04:24 Mineral Oil 30 Ml Oral Liqd PO QHS PRN Constipation Morphine Sulfate 2 mg 04/13/20 03:20 Morphine 2 Mg/1 Ml Inj IV Q4H PRN Pain, Moderate (4-6) Morphine Sulfate 4 mg 04/13/20 03:20 04/13/20 10:35 Morphine 4 Mg/1 Ml Inj IV 4 mg Q4H PRN Administration Pain , Severe (7-10) Multi-Ingredient Ointment 1 applic 04/13/20 03:20 Lanolin/Zinc/Dimethicone (Lansinoh) 7 Gm TP PRN PRN dryness/cracking Multivitamins/Iron/Calcium 1 each 04/13/20 10:00 04/13/20 10:34 [id number] Fumarate-Folic Acid Vit Tab PO 1 each DAILY [facility] Administration Naloxone HCl 0.1 mg 04/13/20 03:20 Naloxone 0.4 Mg/1 Ml Inj IV Q2MIN PRN Res Rate </= 8 or 02 SAT < 92% Ondansetron HCl 4 mg 04/13/20 03:20 Ondansetron 4 Mg/2 Ml Inj IV Q8H PRN Nausea And Vomiting Oxycodone/Acetaminophen 1 tab 04/13/20 03:20 Oxycodone /Acetaminophen 5-325mg Tab PO Q6H PRN Pain, Moderate (4-6) Promethazine HCl 25 mg 04/13/20 03:20 Promethazine 25 Mg Rect Supp CA Q6H PRN N/V IF NPO AND NO IV ACCESS Simethicone 80 mg 04/13/20 03:20 Simethicone 80 Mg Chew Tab PO Q6H PRN Gas pain Sodium Chloride 10 ml 04/13/20 04:00 Sodium Chloride 0.9% 10 Ml Flush Syringe IV PRN PRN LINE FLUSH Terbutaline Sulfate 0.25 mg 04/12/20 04:24 Terbutaline 1 Mg/1 Ml Inj SUB-Q ONCE PRN Hyperstimulation/Hypertonicity Witch Kerri/Glycerin 1 each 04/13/20 03:20 Witch Kerri/ Glycerin Pad TP PRN PRN Hemorrhoids/cleansing/soothing
[2020-04-13 16:09] LABS: Hematocrit 34.2 % (30.3-42.9)
[2020-04-13] MEDS: GENTAMICIN/NS 80 MG/100 ML 100 ML IV SCH (17:05)
--- NOTE | 2020-04-13 22:40 | Post Anesthesia Evaluation ---
- Post Anesthesia Evaluation Patient Participated: Yes Airway Patent: Yes Stable Respiratory Function: Yes Nausea/Vomiting: No Temp > 96.8F: Yes Pain Manageable: Yes Adequeate Hydration: Yes Anesthesia Complications: No Block Receding Appropriately: Yes
[2020-04-13] MEDS: oxyCODONE /ACETAMINOPHEN 5-325MG TAB PO PRN (23:46)
[2020-04-14] MEDS: AMPICILLIN/NS 1 GM/50 ML 1 GM/50 ML BAG IV SCH (01:10)
[2020-04-14] MEDS: GENTAMICIN/NS 80 MG/100 ML 100 ML IV SCH ×3 (01:20→19:26)
[2020-04-14] MEDS: oxyCODONE /ACETAMINOPHEN 5-325MG TAB PO PRN ×3 (06:29→19:26)
[2020-04-14] MEDS: SIMETHICONE 80 MG CHEW TAB PO PRN (10:06)
[2020-04-14] MEDS: PRENATAL VIT27-FE FUMARATE-FOLIC ACID VIT TAB PO SCH (10:06)
[2020-04-14] MEDS: IBUPROFEN 800 MG TAB PO PRN (10:06)
[2020-04-14] MEDS ORDERED: HYDROCORTISONE 2.5% RECT CREAM 28.35 GM PR PRN (12:01)
--- NOTE | 2020-04-14 16:16 | Progress Note ---
Assessment and Plan A: /postop day 1 S/P primary LTCS. UTI. P: Encouraged ambulation. Repeat CBC. Start Macrobid. Stop Ampicillin, Clindamycin, Gentamicin. Subjective - Subjective Date of service: 04/14/20 Principal diagnosis: day 1 S/P primary LTCS Interval history: Urine culture shows gram negative rods. Patient denies flank pain. Patient reports: appetite normal, voiding normally, pain well controlled, flatus, ambulating normally, no dizzy ambulation, no nauseated : doing well Objective - Vital Signs Latest vital signs: Vital Signs Temp Pulse Resp BP BP Pulse Ox 04/14/20 12:52 18 04/14/20 10:06 18 04/14/20 07:15 98.0 F 93 H 18 109/58 92 04/14/20 04:16 97.9 F 89 20 105/70 96 04/14/20 00:35 97.8 F 109 H 24 104/60 93 04/13/20 20:37 98.9 F 120 H 20 119/65 94 04/13/20 16:47 97.6 F 89 18 120/64 97 Intake and Output 04/14/20 04/14/20 04/14/20 07:59 15:59 23:59 Intake Total 630 Balance 630 Intake: IV 150 CLEOCIN 900 MG/50 mL 900 50 mg In 50 ml @ 100 mls/hr IV Q8H [facility] Rx#:[id number] Gentamicin/Ns 80 mg/100 100 ml 100 ml @ 200 mls/hr IV Q8H [facility] Rx#:[id number] Oral 120 Intake, Free Water 360 Other: Total, Intake Amount 120 # Voids Void 1 - Exam Cardiovascular: Present: Regular rate Lungs: Present: Clear to auscultation Abdomen: Present: normal appearance, soft, normal bowel sounds. Absent: distention, tenderness, guarding, rigidity Uterus: Present: normal, firm, fundal height below umbilicus. Absent: bogginess, tenderness Extremities: Present: normal. Absent: tenderness, edema Incision: Present: normal, dry, dressed
[2020-04-14 18:47] LABS: Hematocrit 32.9 % (30.3-42.9); Hemoglobin 10.8 gm/dl (10.1-14.3); Mean Corpuscular HGB Conc 33 % (30-34); Mean Corpuscular Volume 88 fl (79-97); Platelet Count 307 K/mm3 (140-440); Red Blood Count 3.75 M/mm3 (3.65-5.03); Red Cell Distribution Width 15.6 % (13.2-15.2)
[2020-04-14 21:44] LABS: Total Cells Counted 100
[2020-04-14 21:45] LABS: Platelet Estimate Consistent w Auto; RBC Morphology Normal
[2020-04-14] MEDS: NITROFURANTOIN MONOHYD/M-CRYST 100 MG CAP PO SCH (21:49)
[2020-04-15] MEDS: IBUPROFEN 800 MG TAB PO PRN ×3 (00:02→18:58)
[2020-04-15] MEDS: oxyCODONE /ACETAMINOPHEN 5-325MG TAB PO PRN ×2 (06:05→14:27)
[2020-04-15] MEDS: PRENATAL VIT27-FE FUMARATE-FOLIC ACID VIT TAB PO SCH (09:33)
[2020-04-15] MEDS: NITROFURANTOIN MONOHYD/M-CRYST 100 MG CAP PO SCH (09:33)
[2020-04-15] MEDS: SIMETHICONE 80 MG CHEW TAB PO PRN (14:27)
--- NOTE | 2020-04-15 16:05 | Progress Note ---
Subjective - Subjective Date of service: 04/15/20 Principal diagnosis: day 2 S/P primary LTCS Interval history: Urine culture shows gram negative rods. Patient denies flank pain. Objective - Vital Signs Latest vital signs: Vital Signs Temp Pulse Resp BP BP Pulse Ox 04/15/20 14:27 18 04/15/20 09:33 18 04/15/20 08:00 97.6 F 80 18 121/61 96 04/15/20 06:05 20 04/15/20 01:19 98.4 F 101 H 20 110/58 93 04/15/20 00:02 20 Intake and Output 04/15/20 04/15/20 04/15/20 07:59 15:59 23:59 Intake Total 240 Balance 240 Intake: Oral 240 Other: Total, Intake Amount 240 # Voids Void 1 - Labs Labs: Abnormal lab results 04/14/20 Range/Units 18:24 WBC 23.8 H (4.5-11.0) K/mm3 RDW 15.6 H (13.2-15.2) % Seg Neuts % (Manual) 82.0 H (40.0-70.0) % Lymphocytes % (Manual) 11.0 L (13.4-35.0) % Seg Neutrophils # Man 19.5 H (1.8-7.7) K/mm3 Monocytes # (Manual) 1.4 H (0.0-0.8) K/mm3
--- NOTE | 2020-04-15 16:10 | Progress Note ---
Assessment and Plan A: /postop day 3 S/P primary LTCS. UTI with ESBL E. Coli. P: Discontinued Macrobid. Gentamicin started per MD order (5 mg/kg daily). CMP, CBC, blood cultures ordered. ID consult put in. Consulted with Dr. Cai re: this patient. Subjective - Subjective Date of service: 04/15/20 Principal diagnosis: day 3 S/P primary LTCS Interval history: Urine culture now shows ESBL E. Coli. Patient denies flank pain, fever, or chills. ID consult put in for patient; Dr. Cai also notified. Discontinued Macrobid and started Gentamicin per MD order (5 mg/kg daily). CBC, blood cultures, and CMP ordered. Patient reports: appetite normal, voiding normally, pain well controlled, flatus, ambulating normally, no dizzy ambulation, no nauseated : doing well Objective - Vital Signs Latest vital signs: Vital Signs Temp Pulse Resp BP BP Pulse Ox 04/15/20 14:27 18 04/15/20 09:33 18 04/15/20 08:00 97.6 F 80 18 121/61 96 04/15/20 06:05 20 04/15/20 01:19 98.4 F 101 H 20 110/58 93 04/15/20 00:02 20 Intake and Output 04/15/20 04/15/20 04/15/20 07:59 15:59 23:59 Intake Total 240 Balance 240 Intake: Oral 240 Other: Total, Intake Amount 240 # Voids Void 1 - Exam Cardiovascular: Present: Regular rate Lungs: Present: Clear to auscultation Abdomen: Present: normal appearance, soft, normal bowel sounds. Absent: distention, tenderness, guarding, rigidity Uterus: Present: normal, firm, fundal height below umbilicus. Absent: rama gginess, tenderness Extremities: Present: normal. Absent: tenderness, edema Incision: Present: normal, dry, intact - Labs Labs: Abnormal lab results 04/14/20 Range/Units 18:24 WBC 23.8 H (4.5-11.0) K/mm3 RDW 15.6 H (13.2-15.2) % Seg Neuts % (Manual) 82.0 H (40.0-70.0) % Lymphocytes % (Manual) 11.0 L (13.4-35.0) % Seg Neutrophils # Man 19.5 H (1.8-7.7) K/mm3 Monocytes # (Manual) 1.4 H (0.0-0.8) K/mm3
[2020-04-15 16:57] LABS: Alanine Aminotransferase 23 units/L (7-56); Albumin 2.8 g/dL (3.9-5); Blood Urea Nitrogen 13 mg/dL (7-17); Calcium 8.2 mg/dL (8.4-10.2); Hemolysis Index 6
[2020-04-15 16:58] LABS: BUN/Creatinine Ratio 26
[2020-04-15 17:18] LABS: Basophils % (Auto) 0.2 % (0.0-1.8); Eosinophils # (Auto) 0.2 K/mm3 (0.0-0.4); Eosinophils % (Auto) 1.3 % (0.0-4.3); Hemoglobin 10.5 gm/dl (10.1-14.3); Lymphocytes # (Auto) 2.2 K/mm3 (1.2-5.4); Lymphocytes % (Auto) 14.7 % (13.4-35.0); Mean Corpuscular HGB Conc 33 % (30-34); Mean Corpuscular Volume 87 fl (79-97); Monocytes # (Auto) 0.8 K/mm3 (0.0-0.8); Monocytes % (Auto) 5.1 % (0.0-7.3); Platelet Count 343 K/mm3 (140-440); Red Blood Count 3.69 M/mm3 (3.65-5.03); Red Cell Distribution Width 15.2 % (13.2-15.2)
[2020-04-15] MEDS ORDERED: SODIUM CHLORIDE 0.9% 1000 ML 1,000 ML ONE (18:10)
[2020-04-15] MEDS ORDERED: GENTAMICIN 240 MG in SODIUM CHLORIDE 0.9% 100 ML IV SCH (19:00)
[2020-04-15] MEDS: ACETAMINOPHEN 325 MG TAB PO PRN (23:22)
[2020-04-15] MEDS: diphenhydrAMINE 25 MG CAP PO PRN (23:56)
[2020-04-16] MEDS: IBUPROFEN 800 MG TAB PO PRN ×2 (06:14→20:06)
[2020-04-16] MEDS: PRENATAL VIT27-FE FUMARATE-FOLIC ACID VIT TAB PO SCH (09:52)
[2020-04-16] MEDS: oxyCODONE /ACETAMINOPHEN 5-325MG TAB PO PRN (09:52)
--- NOTE | 2020-04-16 12:52 | Consultation ---
History of Present Illness - Reason for Consult Consult date: 04/16/20 Leukocytosis, ESBL UTI Requesting physician: BRITTNEE WOO - History of Present Illness 29 years old female admitted on 04/12/2020 due to uterine contractions for several days. Patient was at 40.6 weeks of . Patient only speaks Sudanese so interview was limited. Denies any dysuria, hematuria, vaginal discharge. Patient had care the [facility]. labs were all negative with negative syphilis, HIV. urine culture was negative. Pap smear within normal limits. Group B strep screen positive. Patient underwent on 04/13/2020 due to arrest of descent, possible chorioamnionitis. On arrival temperature 97.7, HR 105, RR 19, O2 sat 98%, BP 12 2/73. Initial WBC 15.3. AST is 51. Urinalysis with 12 WBCs and trace leukocyte esterase. SARS-CoV-2 PCR negative. Blood culture 04/15/2020 no growth. Urine culture 04/15/2020 E. coli ESBL 10,000-100,000 CFU. Review of Systems: positive in bold print General: fever, chills, malaise Cutaneous: rash, pruritus Head: headaches or injury Eyes: changes in vision, eye pain, double vision Ears: ear pain, ear discharge, ringing or hearing loss Nose: nose bleeding, stuffiness Mouth & throat: bleeding gums, horseness, no dental problems, or swollen glands Neck: no pain, node enlargement/lumps, tyroid enlargement or tenderness Respiratory: SOB, cough, CORREA, wheezing, sputum, hemoptysis, pleuritic chest pain Cardiovascular: chest pain, leg edema, cyanosis, CORREA, orthopnea Musculoskeletal: edema, deformities, pain Gastrointestinal: nausea, vomiting, hematemesis, diarrhea, constipation, melena, bright red blood in stools, fecal incontinence, jaundice Genitourinary/Reproductive: Uterine contractions, denies dysuria, hematuria Neurogical: seizures, headaches, weakness, paresthesias, loss of speech or vision; memory loss, vertigo, tremors, numbness Psychiatric: stable mood; excessive anxiety, sadness or moodiness Past History Social history: no significant social history, Medications and Allergies Allergies Allergy/AdvReac Type Severity Reaction Status Date / Time No Known Allergies Allergy Verified 04/02/20 22:04 Home Medications Medication Instructions Recorded Confirmed Last Taken Type [facility]vs Vitamins Tablet 140 mg PO DAILY 04/02/20 04/12/20 04/11/20 History Ibuprofen [Motrin] 600 mg PO Q8H PRN #60 tablet 04/13/20 Unknown Rx oxyCODONE /ACETAMINOPHEN [Percocet 1 tab PO Q6HR PRN #20 tablet 04/13/20 Unknown Rx 5/325] Active Meds: Active Medications Acetaminophen (Acetaminophen 325 Mg Tab) 650 mg PO Q4H PRN PRN Reason: Pain, Mild (1-3) Last Admin: 04/15/20 23:22 Dose: 650 mg Documented by: Diphenhydramine HCl (Diphenhydramine 25 Mg Cap) 25 mg PO Q6H PRN PRN Reason: Itching Last Admin: 04/15/20 23:56 Dose: 25 mg Documented by: Ephedrine Sulfate (Ephedrine Sulfate 50 Mg/1 Ml Inj) 10 mg IV Q2M PRN PRN Reason: Hypotension Hydrocortisone Acetate (Hydrocortisone 2.5% Rect Cream 28.35 Gm) 1 applic SD Q8H PRN PRN Reason: Hemorrhoids Last Admin: 04/15/20 07:01 Dose: 1 applic Documented by: Oxytocin/Sodium Chloride (Pitocin/Ns 30 Unit/500ml) 30 units in 500 mls @ 40 mls/hr IV TITR KESHIA; Protocol Fentanyl/Bupivacaine/Sodium Chlor (Fentanyl-Bupiv 2 Mcg/Ml-0.125%) 200 mcg in 100 mls @ 12 mls/hr EPIDURAL TITR KESHIA; Protocol Last Admin: 04/12/20 16:02 Dose: 12 mls/hr Documented by: Oxytocin/Sodium Chloride (Pitocin/Ns 30 Unit/500ml) 30 units in 500 mls @ 165 mls/hr IV TITR KESHIA Gentamicin Sulfate 240 mg/ (Sodium Chloride) 106 mls @ 200 mls/hr IV Q24H KESHIA; Protocol Last Admin: 04/15/20 18:59 Dose: 200 mls/hr Documented by: Ibuprofen (Ibuprofen 800 Mg Tab) 800 mg PO Q6H PRN PRN Reason: Pain, Mild (1-3) Last Admin: 04/16/20 06:14 Dose: 800 mg Documented by: Morphine Sulfate (Morphine 4 Mg/1 Ml Inj) 4 mg IV Q4H PRN PRN Reason: Pain , Severe (7-10) Last Admin: 04/13/20 19:10 Dose: 4 mg Documented by: Multi-Ingredient Ointment (Lanolin/Zinc/Dimethicone (Lansinoh) 7 Gm) 1 applic TP PRN PRN PRN Reason: dryness/cracking Multivitamins/Iron/Calcium ( Tbp04-Gp Fumarate-Folic Acid Vit Tab) 1 each PO DAILY KESHIA Last Admin: 04/16/20 09:52 Dose: 1 each Documented by: Naloxone HCl (Naloxone 0.4 Mg/1 Ml Inj) 0.1 mg IV Q2MIN PRN PRN Reason: Res Rate </= 8 or 02 SAT < 92% Ondansetron HCl (Ondansetron 4 Mg/2 Ml Inj) 4 mg IV Q8H PRN PRN Reason: Nausea And Vomiting Oxycodone/Acetaminophen (Oxycodone /Acetaminophen 5-325mg Tab) 1 tab PO Q6H PRN PRN Reason: Pain, Moderate (4-6) Last Admin: 04/16/20 09:52 Dose: 1 tab Documented by: Promethazine HCl (Promethazine 25 Mg Rect Supp) 25 mg SD Q6H PRN PRN Reason: N/V IF NPO AND NO IV ACCESS Simethicone (Simethicone 80 Mg Chew Tab) 80 mg PO Q6H PRN PRN Reason: Gas pain Last Admin: 04/15/20 14:27 Dose: 80 mg Documented by: Sodium Chloride (Sodium Chloride 0.9% 10 Ml Flush Syringe) 10 ml IV PRN PRN PRN Reason: LINE FLUSH Witch Kerri/Glycerin (Witch Kerri/ Glycerin Pad) 1 each TP PRN PRN PRN Reason: Hemorrhoids/cleansing/soothing Physical Examination - Physical Exam Narrative exam: General appearance: Alert in NAD pleasant Eyes: anicteric sclerae, moist conjunctivae; no lid-lag; PERRLA HENT: Normocephalic, Atraumatic; normal external ears, nares open, oropharynx clear with moist mucous membranes and no oral thrush; normal hard and soft palate. Neck: supple, tracheal midline, no JVD Lungs: CTA, with normal respiratory effort and no intercostal retractions CV: RRR no murmur Abdomen: Soft, mild tenderness, wound clean Extremities: no edema, no cyanosis Skin: No rash. Psych: no agitated Neuro: alert and oriented x 3. Moving all extermities - Constitutional Vitals: Vital Signs Temp Pulse Resp BP Pulse Ox 98.8 F 95 H 18 108/63 96 04/16/20 07:35 04/16/20 07:35 04/16/20 07:35 04/16/20 07:35 04/16/20 07:35 Temperature -Last 24 Hours Temperature 98.8 F Temperature 98.2 F Temperature 97.6 F Results - Labs CBC & Chem 7: 04/15/20 16:22 04/15/20 16:22 Labs: Abnormal lab results 04/15/20 04/15/20 Range/Units 16:22 16:22 WBC 15.2 H (4.5-11.0) K/mm3 Seg Neutrophils % 78.7 H (40.0-70.0) % Seg Neutrophils # 11.9 H (1.8-7.7) K/mm3 Creatinine 0.5 L (0.6-1.2) mg/dL Calcium 8.2 L (8.4-10.2) mg/dL AST 51 H (5-40) units/L Total Protein 5.1 L (6.3-8.2) g/dL Albumin 2.8 L (3.9-5) g/dL Assessment and Plan Cultures: SARS-CoV-2 PCR negative. Blood culture 04/15/2020 no growth. Urine culture 04/15/2020 E. coli ESBL 10,000-100,000 CFU. Assessment: 29 years old female with 42 weeks admitted on 04/12/2020 due to uterine contractions for several days, found to have leukocytosis s econdary to UTI: #Sepsis: Present on admission with tachycardia, leukocytosis, elevated LFTs, likely secondary to UTI. #Acute UTI: Urine culture grew E. coli ESBL 10,000-100,000 CFU # 42 weeks/labor: Status post on 04/13/2020 due to arrest of descent, possible chorioamnionitis. Recommendations: -Stop gentamicin -Start ertapenem 1 g IV once a day total 3 days -Monitor leukocytosis and LFTs -Obtain renal US eval for stones/hydro -Oral Fosfomycin 3 g po x1 at home could be an option be not recommended if Will follow. Nicole Cheung MD Infectious Diseases Life Coach [facility] M [phone] O [phone]
[2020-04-16] MEDS: ERTAPENEM 1 GM in SODIUM CHLORIDE 0.9% 50 ML IV SCH (14:10)
--- NOTE | 2020-04-16 18:04 | Ultrasound Report ---
US renal BILAT INDICATION / CLINICAL INFORMATION: sepsis, resistant EColi UTI. COMPARISON: None available. FINDINGS: Right kidney measures 11 cm in length, with cortical thickness of 1.6 cm. No hydronephrosis, abnormal mass or calculus. Left kidney measures 11.5 cm in length, with cortical thickness of 1.7 cm. No hydronephrosis, appreci able mass or calculus. Urinary bladder appears unremarkable. IMPRESSION: 1. Negative study. Signer Name: Caden Rueda MD Signed: 04/16/2020 5:59 PM Workstation Name: [id number]
--- NOTE | 2020-04-16 18:49 | Progress Note ---
Assessment and Plan POD#3 C/section with resistant ESBL UTI 1. Appreciate ID and will continue #1/3 IV Ertapenem daily, renal u/s done today was normal 2. Routine care 3. Await CBC and CMP ordered and nurse notified All questions encouraged and answered Subjective Date of service: 04/16/20 Principal diagnosis: day 3 S/P primary LTCS, UTI Interval history: Pt has no complaints and lying in bed. Partner to bedside. pt has tolerated regular diet, passing flatus, and pain well controlled and scant vaginal bleeding. Pt was seen by ID organizational development consultant that recommended for pt's UTI with ESBL, pt to receive IV abx for the next 3days Objective - Constitutional Vitals: Vital Signs - 12hr 04/16/20 04/16/20 07:35 15:53 Temperature 98.8 F 98.0 F Pulse Rate 95 H 96 H Respiratory 18 18 Rate Blood Pressure 108/63 113/69 O2 Sat by Pulse 96 97 Oximetry - Breasts Breasts: normal - Cardiovascular Rhythm: regular - Gastrointestinal General gastrointestinal: Present: soft, non-tender, normal bowel sounds, other (Incision C/D/I with steristrips and Uterine fundus 2cm below umbilicus and non- tender) - Psychiatric Psychiatric: appropriate mood/affect - Labs CBC & Chem 7: 04/15/20 16:22 04/15/20 16:22 Medications & Allergies - Medications Allergies/Adverse Reactions: Allergies No Known Allergies Allergy (Verified 04/02/20 22:04) Home Medications: Home Medications Medication Instructions Recorded Confirmed Last Taken Type Cvs Vitamins Tablet 140 mg PO DAILY 04/02/20 04/12/20 04/11/20 History Ibuprofen [Motrin] 600 mg PO Q8H PRN #60 tablet 04/13/20 Unknown Rx oxyCODONE /ACETAMINOPHEN [Percocet 1 tab PO Q6HR PRN #20 tablet 04/13/20 Unknown Rx 5/325] Active Medications: Generic Name Dose Route Start Last Admin Trade Name Freq PRN Reason Stop Dose Admin Acetaminophen 650 mg 04/13/20 02:01 04/15/20 23:22 Acetaminophen 325 Mg Tab PO 650 mg Q4H PRN Administration Pain, Mild (1-3) Diphenhydramine HCl 25 mg 04/15/20 23:36 04/15/20 23:56 Diphenhydramine 25 Mg Cap PO 25 mg Q6H PRN Administration Itching Ephedrine Sulfate 10 mg 04/12/20 13:54 Ephedrine Sulfate 50 Mg/1 Ml Inj IV Q2M PRN Hypotension Hydrocortisone Acetate 1 applic 04/14/20 12:01 04/15/20 07:01 Hydrocortisone 2.5% Rect Cream 28.35 Gm [place] 1 applic Q8H PRN Administration Hemorrhoids Oxytocin/Sodium Chloride 30 units in 500 mls @ 40 mls/hr 04/12/20 05:00 Pitocin/Ns 30 Unit/500ml IV TITR KESHIA Protocol Fentanyl/Bupivacaine/Sodium Chlor 200 mcg in 100 mls @ 12 mls/hr 04/12/20 14:00 04/12/20 16:02 Fentanyl-Bupiv 2 Mcg/Ml-0.125% EPIDURAL 12 mls/hr TITR KESHIA Administration Protocol Oxytocin/Sodium Chloride 30 units in 500 mls @ 165 mls/hr 04/13/20 04:00 Pitocin/Ns 30 Unit/500ml IV TITR KESHIA Ertapenem 1 gm/ Sodium 50 mls @ 100 mls/hr 04/16/20 13:30 04/16/20 14:10 Chloride IV 100 mls/hr QDAY KESHIA Administration Ibuprofen 800 mg 04/13/20 03:20 04/16/20 06:14 Ibuprofen 800 Mg Tab PO 800 mg Q6H PRN Administration Pain, Mild (1-3) Morphine Sulfate 4 mg 04/13/20 03:20 04/13/20 19:10 Morphine 4 Mg/1 Ml Inj IV 4 mg Q4H PRN Administration Pain , Severe (7-10) Multi-Ingredient Ointment 1 applic 04/13/20 03:20 Lanolin/Zinc/Dimethicone (Lansinoh) 7 Gm TP PRN PRN dryness/cracking Multivitamins/Iron/Calcium 1 each 04/13/20 10:00 04/16/20 09:52 [id number] Fumarate-Folic Acid Vit Tab PO 1 each DAILY KESHIA Administration Naloxone HCl 0.1 mg 04/13/20 03:20 Naloxone 0.4 Mg/1 Ml Inj IV Q2MIN PRN Res Rate </= 8 or 02 SAT < 92% Ondansetron HCl 4 mg 04/13/20 03:20 Ondansetron 4 Mg/2 Ml Inj IV Q8H PRN Nausea And Vomiting Oxycodone/Acetaminophen 1 tab 04/13/20 03:20 04/16/20 09:52 Oxycodone /Acetaminophen 5-325mg Tab PO 1 tab Q6H PRN Administration Pain, Moderate (4-6) Promethazine HCl 25 mg 04/13/20 03:20 Promethazine 25 Mg Rect Supp [place] Q6H PRN N/V IF NPO AND NO IV ACCESS Simethicone 80 mg 04/13/20 03:20 04/15/20 14:27 Simethicone 80 Mg Chew Tab PO 80 mg Q6H PRN Administration Gas pain Sodium Chloride 10 ml 04/13/20 04:00 Sodium Chloride 0.9% 10 Ml Flush Syringe IV PRN PRN LINE FLUSH Witch Kerri/Glycerin 1 each 04/13/20 03:20 Witch Kerri/ Glycerin Pad TP PRN PRN Hemorrhoids/cleansing/soothing
[2020-04-16 20:02] LABS: Alanine Aminotransferase 26 units/L (7-56); Blood Urea Nitrogen 13 mg/dL (7-17); Calcium 8.5 mg/dL (8.4-10.2); Hemolysis Index 0
[2020-04-16 20:03] LABS: BUN/Creatinine Ratio 26; Basophils % (Auto) 0.1 % (0.0-1.8); Eosinophils # (Auto) 0.3 K/mm3 (0.0-0.4); Eosinophils % (Auto) 2.2 % (0.0-4.3); Hematocrit 32.5 % (30.3-42.9); Hemoglobin 10.4 gm/dl (10.1-14.3); Lymphocytes # (Auto) 1.9 K/mm3 (1.2-5.4); Lymphocytes % (Auto) 13.4 % (13.4-35.0); Mean Corpuscular HGB Conc 32 % (30-34); Mean Corpuscular Volume 88 fl (79-97); Monocytes # (Auto) 0.6 K/mm3 (0.0-0.8); Monocytes % (Auto) 4.5 % (0.0-7.3); Platelet Count 362 K/mm3 (140-440); Red Blood Count 3.71 M/mm3 (3.65-5.03); Red Cell Distribution Width 15.2 % (13.2-15.2)
[2020-04-16] MEDS: diphenhydrAMINE 25 MG CAP PO PRN (20:06)
[2020-04-17] MEDS: IBUPROFEN 800 MG TAB PO PRN ×2 (04:52→17:52)
[2020-04-17] MEDS: diphenhydrAMINE 25 MG CAP PO PRN (04:52)
[2020-04-17] MEDS: ERTAPENEM 1 GM in SODIUM CHLORIDE 0.9% 50 ML IV SCH (10:12)
[2020-04-17] MEDS: PRENATAL VIT27-FE FUMARATE-FOLIC ACID VIT TAB PO SCH (10:12)
--- NOTE | 2020-04-17 10:48 | Progress Note ---
Assessment and Plan Cultures: SARS-CoV-2 PCR negative. Blood culture 04/15/2020 no growth. Urine culture 04/15/2020 E. coli ESBL 10,000-100,000 CFU. Assessment: 29 years old female with 42 weeks admitted on 04/12/2020 due to uterine contractions for several days, found to have leukocytosis secondary to UTI: #Sepsis: improving, likely secondary to UTI. #Acute UTI: Urine culture grew E. coli ESBL 10,000-100,000 CFU. Renal US unremarkable #/labor: Status post on 04/13/2020 due to arrest of descent, possible chorioamnionitis. Recommendations: -Continue ertapenem 1 g IV once a day D2 of 3 -Monitor leukocytosis and LFTs -Ok to d/c tomorrow after 3rd dose of ertapenem Will follow. Nicole Cheung MD Infectious Diseases Vice President [employer] [facility] M [phone] O [phone] Subjective Date of service: 04/17/20 Principal diagnosis: day 3 S/P primary LTCS, UTI Interval history: Feels better no complaints, no fever Objective - Exam Narrative Exam: General appearance: Alert in NAD pleasant Eyes: anicteric sclerae, moist conjunctivae; no lid-lag; PERRLA HENT: Normocephalic, Atraumatic; normal external ears, nares open, oropharynx clear with moist mucous membranes and no oral thrush; normal hard and soft palate. Neck: supple, tracheal midline, no JVD Lungs: CTA, with normal respiratory effort and no intercostal retractions CV: RRR no murmur Abdomen: Soft, mild tenderness, wound clean Extremities: no edema, no cyanosis Skin: No rash. Psych: no agitated Neuro: alert and oriented x 3. Moving all extermities - Constitutional Vitals: Vital Signs Temp Pulse Resp BP Pulse Ox 98.2 F 76 20 109/65 97 04/17/20 08:24 04/17/20 08:24 04/17/20 08:24 04/17/20 08:24 04/17/20 08:24 Temperature -Last 24 Hours Temperature 98.2 F Temperature 98 F Temperature 99.5 F Temperature 98.0 F - Labs CBC & Chem 7: 04/16/20 19:13 04/16/20 19:13 Labs: Abnormal lab results 04/16/20 04/16/20 Range/Units 19:13 19:13 WBC 13.8 H (4.5-11.0) K/mm3 Seg Neutrophils % 79.8 H (40.0-70.0) % Seg Neutrophils # 11.0 H (1.8-7.7) K/mm3 Creatinine 0.5 L (0.6-1.2) mg/dL Glucose 104 H (65-100) mg/dL Total Protein 5.3 L (6.3-8.2) g/dL Albumin 3.0 L (3.9-5) g/dL
--- NOTE | 2020-04-17 11:08 | Progress Note ---
Assessment and Plan - Patient Problems (1) S/P primary low transverse Current Visit: Yes Status: Acute Plan to address problem: Continue routine PP orders Keep incision clean and dry Anticipate d/c home tomorrow if stable (2) Sepsis secondary to UTI Current Visit: Yes Status: Acute Plan to address problem: Infectious disease specialist consulting Continue ordered ABT therapy Possible d/c tomorrow (3) Anemia Current Visit: Yes Status: Acute Qualifiers: Anemia type: other cause Other causes of anemia: acute posthemorrhagic Qualified Code(s): D62 - Acute posthemorrhagic anemia Plan to address problem: Asymptomatic Subjective - Subjective Date of service: 04/17/20 Principal diagnosis: day 4 S/P primary LTCS; Sepsis - UTI Patient reports: appetite normal, voiding normally, pain well controlled, flatus, ambulating normally [place]: doing well, bottle feeding Objective - Vital Signs Latest vital signs: Vital Signs Temp Pulse Resp BP BP Pulse Ox 04/17/20 08:24 98.2 F 76 20 109/65 97 04/17/20 00:00 98 F 74 18 101/74 04/16/20 19:48 99.5 F 93 H 18 115/69 98 04/16/20 15:53 98.0 F 96 H 18 113/69 97 Intake and Output 04/16/20 04/17/20 04/17/20 23:59 07:59 15:59 Intake Total 1260 Balance 1260 Intake: Oral 360 Intake, Free Water 900 Other: Total, Intake Amount 360 # Voids Void 1 - Exam Breasts: Present: normal Cardiovascular: Present: Regular rate Lungs: Present: Normal air movement Abdomen: Present: soft, tenderness Uterus: Present: firm, fundal height below umbilicus (U-3) Extremities: Present: normal Deep Tendon Reflex Grade: Normal +2 Incision: Present: dry, intact (no drainage or bleeding noted) - Labs Labs: Abnormal lab results 04/16/20 04/16/20 Range/Units 19:13 19:13 WBC 13.8 H (4.5-11.0) K/mm3 Seg Neutrophils % 79.8 H (40.0-70.0) % Seg Neutrophils # 11.0 H (1.8-7.7) K/mm3 Creatinine 0.5 L (0.6-1.2) mg/dL Glucose 104 H (65-100) mg/dL Total Protein 5.3 L (6.3-8.2) g/dL Albumin 3.0 L (3.9-5) g/dL
[2020-04-17 17:08] LABS: Basophils % (Auto) 0.2 % (0.0-1.8); Eosinophils # (Auto) 0.2 K/mm3 (0.0-0.4); Eosinophils % (Auto) 2.1 % (0.0-4.3); Hematocrit 34.8 % (30.3-42.9); Hemoglobin 11.3 gm/dl (10.1-14.3); Lymphocytes # (Auto) 1.9 K/mm3 (1.2-5.4); Lymphocytes % (Auto) 17.5 % (13.4-35.0); Mean Corpuscular HGB Conc 32 % (30-34); Mean Corpuscular Volume 88 fl (79-97); Monocytes # (Auto) 0.6 K/mm3 (0.0-0.8); Monocytes % (Auto) 5.8 % (0.0-7.3); Platelet Count 400 K/mm3 (140-440); Red Blood Count 3.97 M/mm3 (3.65-5.03); Red Cell Distribution Width 15.3 % (13.2-15.2)
[2020-04-17 17:16] LABS: Alanine Aminotransferase 31 units/L (7-56); Albumin 3.3 g/dL (3.9-5)
[2020-04-17 17:21] LABS: Bilirubin,Direct < 0.2 mg/dL (0-0.2)
[2020-04-18] MEDS: ERTAPENEM 1 GM in SODIUM CHLORIDE 0.9% 50 ML IV SCH (10:20)
[2020-04-18 10:54] VITALS: BP 99/59
--- NOTE | 2020-04-18 13:10 | Progress Note ---
Assessment and Plan Cultures: SARS-CoV-2 PCR negative. Blood culture 04/15/2020 no growth. Urine culture 04/15/2020 E. coli ESBL 10,000-100,000 CFU. Assessment: 29 years old female with 42 weeks admitted on 04/12/2020 due to uterine contractions for several days, found to have leukocytosis secondary to UTI: #Sepsis: Resolved, likely secondary to UTI. #Acute UTI: Urine culture grew E. coli ESBL 10,000-100,000 CFU. Renal US unremarkable #/labor: Status post on 04/13/2020 due to arrest of descent, possible chorioamnionitis. #Elevated LFTs: Resolved. Recommendations: -Continue ertapenem 1 g IV once a day D3 of 3 -Ok to d/c today after 3rd dose of ertapenem Will sign off please call us with any questions Nicole Cheung MD Infectious Diseases [employer] [facility] M [phone] O [phone] Subjective Date of service: 04/18/20 Principal diagnosis: day 4 S/P primary LTCS; Sepsis - UTI Interval history: Patient reports feeling better and she is complaining of mild pain at the C- section site, no fever, no urinary symptoms. Objective - Exam Narrative Exam: General appearance: Alert in NAD pleasant Eyes: anicteric sclerae, moist conjunctivae; no lid-lag; PERRLA HENT: Normocephalic, Atraumatic; normal external ears, nares open, oropharynx clear with moist mucous membranes and no oral thrush; normal hard and soft palate. Neck: supple, tracheal midline, no JVD Lungs: CTA, with normal respiratory effort and no intercostal retractions CV: RRR no murmur Abdomen: Soft, mild tenderness, wound clean Extremities: no edema, no cyanosis Skin: No rash. Psych: no agitated Neuro: alert and oriented x 3. Moving all extermities - Constitutional Vitals: Vital Signs Temp Pulse Resp BP Pulse Ox 98.4 F 85 18 99/59 98 04/18/20 08:52 04/18/20 08:52 04/18/20 08:52 04/18/20 08:52 04/18/20 08:52 Temperature -Last 24 Hours Temperature 98.4 F Temperature 98.8 F Temperature 98.3 F - Labs CBC & Chem 7: 04/17/20 16:17 04/16/20 19:13 Labs: Abnormal lab results 04/17/20 04/17/20 Range/Units 16:17 16:17 RDW 15.3 H (13.2-15.2) % Seg Neutrophils % 74.4 H (40.0-70.0) % Seg Neutrophils # 8.1 H (1.8-7.7) K/mm3 Alkaline Phosphatase 133 H (35-129) units/L Total Protein 6.0 L (6.3-8.2) g/dL Albumin 3.3 L (3.9-5) g/dL
--- NOTE | 2020-04-18 14:15 | Progress Note ---
Assessment and Plan - Patient Problems (1) S/P repeat low transverse Current Visit: Yes Status: Acute Plan to address problem: stable postop and may go home. RTO 1 week (2) Sepsis secondary to UTI Current Visit: Yes Status: Acute Plan to address problem: Abx regimen completed per ID and pt can go home with no further Abx needed. Subjective - Subjective Date of service: 04/18/20 Principal diagnosis: day 5 S/P primary LTCS; Sepsis - UTI Patient reports: other (Patient is doing well. No fever, chills, nausea/vomiting, chest pain, or shortness of breath. P.o. tolerated well. Patient voiding without difficulty. Patient ambulating. Positive flatus. No complaints.) Objective - Vital Signs Latest vital signs: Vital Signs Temp Pulse Resp BP BP Pulse Ox 04/18/20 08:52 98.4 F 85 18 99/59 98 04/18/20 00:00 98.8 F 72 18 112/68 04/17/20 16:21 98.3 F 89 20 119/81 96 Intake and Output 04/17/20 04/18/20 04/18/20 23:59 07:59 15:59 Intake Total 120 300 Balance 120 300 Intake: Oral 120 Intake, Free Water 300 Other: Total, Intake Amount 120 # Voids Void 1 1 - Exam Incision: Present: normal, intact - Labs Labs: Abnormal lab results 04/17/20 04/17/20 Range/Units 16:17 16:17 RDW 15.3 H (13.2-15.2) % Seg Neutrophils % 74.4 H (40.0-70.0) % Seg Neutrophils # 8.1 H (1.8-7.7) K/mm3 Alkaline Phosphatase 133 H (35-129) units/L Total Protein 6.0 L (6.3-8.2) g/dL Albumin 3.3 L (3.9-5) g/dL
--- NOTE | 2020-04-18 14:17 | Discharge Summary ---
Providers - Providers Date of Admission: 04/12/20 04:24 Date of discharge: 04/18/20 Attending physician: GEOVANNY GIFFORD 04/15/20 16:18 Consult to Physician [CONS] Routine Comment: Consulting Provider: ELIJAH AGUAYO Physician Instructions: Reason For Exam: ESBL e coli on urine culture; leukocytosis Primary care physician: GEOVANNY GIFFORD Hospitalization Delivery: (See operative report for details.) Procedure: primary low transverse complications: other (Urosepsis. Patient treated with IV ertapenem with ID consulting. Patient cleared for discharge on postop day #5 with no home antibiotics required. Patient was stable and afebrile at the time of discharge) Condition at discharge: Stable Disposition: CT- TO HOME OR SELFCARE - Discharge Diagnoses (1) Sepsis secondary to UTI Status: Acute (2) S/P primary low transverse Status: Acute Plan - Discharge Medications Prescriptions: Ibuprofen [Motrin] 600 mg PO Q8H PRN #60 tablet PRN Reason: Pain oxyCODONE /ACETAMINOPHEN [Percocet 5/325] 1 tab PO Q6HR PRN #20 tablet PRN Reason: Pain - Provider Discharge Summary Additional instructions: [] Smoking cessation referral if applicable(refer to patient education folder for contact #) [] Refer to [facility]'s [facility] Booklet Call your doctor immediately for: * Fever > 100.5 * Heavy vaginal bleeding ( >1 pad per hour) * Severe persistent headache * Shortness of breath * Reddened, hot, painful area to leg or breast * Drainage or odor from incision. * Keep incision clean and dry at all times and follow doctor's instructions regarding bathing/showering - Follow up plan Follow up: TOBIN GERBER MD [Staff Physician] - 7 Days Forms: [facility] [place] Discharge Summary
== END 2020-04-18 16:30 | disposition home or self-care (01) | DRG 786 ==
LOC: TRG 02:18 → APU 02:24 → TRG 04:24 → LD 04:24 → OB 04-13 06:47
PROVIDERS: ADMIT Obstetrics & Gynecology; ATTEND Obstetrics & Gynecology
PROC: 3E0R3BZ Introduction of Anesthetic Agent into Spinal Canal, Percutaneous Approach (ICD-10-PCS; 2020-04-12)
PROC: 00HU33Z Insertion of Infusion Device into Spinal Canal, Percutaneous Approach (ICD-10-PCS; 2020-04-12)
PROC: 10D00Z1 Extraction of Products of Conception, Low, Open Approach (ICD-10-PCS; principal; 2020-04-13)
DX: O41.1230 Chorioamnionitis, third trimester, not applicable or unspecified (principal); A41.51 Sepsis due to Escherichia coli [E. coli]; O75.3 Other infection during labor; O98.82 Other maternal infectious and parasitic diseases complicating childbirth; D62 Acute posthemorrhagic anemia; O23.43 Unspecified infection of urinary tract in pregnancy, third trimester; O99.824 Streptococcus B carrier state complicating childbirth; O48.0 Post-term pregnancy; O62.1 Secondary uterine inertia; O99.02 Anemia complicating childbirth; Z3A.41 41 weeks gestation of pregnancy; Z37.0 Single live birth; Z20.822 Contact with and (suspected) exposure to COVID-19
CPT/HCPCS: 36415; 59025; 76770; 76815; 76819; 80053; 80076; 81001; 85007; 85014; 85018; 85025; 85027; 86592; 86850; 86900; 86901; 87040; 87076; 87086; 87186; 88307; G0378; J0290; J0595; J1335; J1580; J1885; J2270; J2590; J2765; J3490; J7030; J7120; U0003